=== PATIENT | female | born 1980 | race Caucasian/White ===

== ENCOUNTER 2017-04-11 12:15 | Emergency (ER) | payer BC ==
[2017-04-11 12:33] VITALS: PULSE 75; TEMP 98.6; BMI 47.4
[2017-04-11] MEDS ORDERED: KETOROLAC TROMETHAMINE 30 MG/1 ML VIAL IVPUSH ONE (13:08)
[2017-04-11] MEDS ORDERED: HYDROmorphone HCL CARPU-JECT 1 MG/1 ML DISP.SYRIN IVPUSH ONE (13:08)
[2017-04-11 13:39] LABS: PH,URINE 5.5 (4.5-8); URINE APPEARANCE Clear; URINE BILIRUBIN Negative (NEGATIVE); URINE BLOOD Negative (NEGATIVE); URINE GLUCOSE (UA) Negative (NEGATIVE); URINE KETONE Trace (NEGATIVE); URINE LEUK ESTERASE Negative (NEGATIVE); URINE NITRITE Negative (NEGATIVE); URINE PROTEIN Negative (NEGATIVE); URINE UROBILINOGEN 0.2 (0.2-1.0)
[2017-04-11 13:40] LABS: URINE COLOR YELLOW
[2017-04-11] MEDS ORDERED: KETOROLAC TROMETHAMINE 30 MG/1 ML VIAL ONE (13:40)
[2017-04-11] MEDS ORDERED: HYDROmorphone HCL CARPU-JECT 1 MG/1 ML DISP.SYRIN ONE (13:40)
[2017-04-11 13:47] VITALS: BP 105/65
[2017-04-11 13:53] LABS: BASOPHIL 0.9 % (0-2.0); EOSINOPHIL 0.4 % (0-4.5); MCH 24.2 pg (25.7-33.7); MCHC 32.4 g/dl (32.0-36.0); MEAN CELL VOLUME 74.7 fl (80-96); MEAN PLT VOLUME 7.9 fl (7.5-11.1); NEUTROPHILS 67.1 % (42.8-82.8); PLATELET COUNT 356 K/MM3 (134-434); RDW 15.9 % (11.6-15.6); WHITE BLOOD COUNT 11.6 K/mm3 (4.0-10.8)
[2017-04-11 13:59] LABS: ALBUMIN 4.1 g/dl (3.5-5.0); ALK PHOS 80 U/L (32-92); ANION GAP 6 (8-16); BILIRUBIN,TOTAL 0.5 mg/dl (0.2-1.0); CALCIUM 9.3 mg/dl (8.4-10.2); CO2 24 mmol/L (22-28); CREATININE 0.7 mg/dl (0.6-1.3); GLUCOSE,RANDOM 98 mg/dl (74-106); SGOT/AST 19 U/L (10-42); SGPT/ALT 14 U/L (10-40); TOT PROT 7.5 g/dl (6.4-8.3)
--- NOTE | 2017-04-11 15:03 | PDOC ---
History of Present Illness - General Chief Complaint: Pain Stated Complaint: RIGHT HIP PAIN Time Seen by Provider: 04/11/17 12:38 - History of Present Illness Initial Comments: 04/11/17 15:00 Chief complaint right lower quadrant pain/hip pain History of present illness: This is a 36-year-old woman with past medical history significant for rheumatoid arthritis who presents to the ED with 1 day history of severe right hip and lower abdominal discomfort. Patient states that the pain is not consistent with flairs from her rheumatoid arthritis. She takes Amaryl injections for these. She denies any acute trauma no fever no nausea no vomiting no diarrhea. Pain is moderate to severe 8 out of 10 sharp throbbing. She is unable to ambulate secondary to the pain. Past History - Travel Traveled outside of the country in the last 30 days: No Close contact w/someone who was outside of country & ill: No - Past Medical History Allergies/Adverse Reactions: Allergies Allergy/AdvReac Type Severity Reaction Status Date / Time Penicillins Allergy Severe Difficulty Verified 04/11/17 12:19 Breathing iodine Allergy Intermediate Rash Verified 04/11/17 12:19 amoxicillin Allergy Verified 04/11/17 12:19 morphine AdvReac Intermediate Verified 04/11/17 12:19 contrast Allergy Uncoded 04/11/17 12:19 Home Medications: Ambulatory Orders Etanercept [Enbrel] 50 mg SQ WEEKLY 12/25/15 Sulfasalazine 500 mg PO BID 12/25/15 Albuterol Sulfate Inhaler - [Ventolin Hfa Inhaler -] 1 - 2 inh PO QID PRN Tramadol HCl 50 mg PO TID #12 tablet MDD 200 04/11/17 Anemia: No Asthma: Yes Cancer: No Cardiac Disorders: No CVA: No COPD: No CHF: No Dementia: No Diabetes: No GI Disorders: No Disorders: No HTN: No Hypercholesterolemia: No Liver Disease: No Seizures: No Thyroid Disease: No Other medical history: rHEUMATOID ARTHRITIS - Surgical History Abdominal Surgery: Yes (INGUINAL HERNIA REPAIR BILATERAL) Appendectomy: No Cardiac Surgery: No Cholecystectomy: Yes Lung Surgery: No Neurologic Surgery: No Orthopedic Surgery: No - Immunization History Immunization Up to Date: Yes - Suicide/Smoking/Psychosocial Hx Smoking Status: No Smoking History: Former smoker Have you smoked in the past 12 months: No Number of Cigarettes Smoked Daily: 0 If you are a former smoker, when did you quit?: 1997 Information on smoking cessation initiated: No Hx Alcohol Use: Yes (OCCASIONAL) Drug/Substance Use Hx: No Substance Use Type: None Hx Substance Use Treatment: No Review of Systems - Review of Systems Able to Perform ROS?: Yes Comments:: 04/11/17 15:01 ROS: A complete review of 10 out of 10 review of systems is taken and is negative apart from what is previously mentioned below and in the HPI. *Physical Exam - Vital Signs Last Vital Signs Temp Pulse Resp BP Pulse Ox 98.6 F 75 16 105/65 98 04/11/17 12:16 04/11/17 12:16 04/11/17 12:16 04/11/17 13:46 04/11/17 12:16 - Physical Exam Comments: 04/11/17 15:02 Vitals: Triage Vital signs reviewed General Appearance: no acute distress, well nourished well developed, Head: Atraumatic, Neck: Supple;No Nucal rigidity Chest Wall: Nontender Cardiac: Regular rate and rhythym, no murmurs, no rubs, no gallops, Lungs: Clear to auscultation bilateral, good air movement bilaterally, Abdomen: Soft, non distended, normal bowel sounds, right lower quadrant tenderness to palpation. Extremities: Full range of motion to all extremities, no cyanosis, clubbing, or edema, tenderness to palpation over the right hip pain with range of motion to the right hip. Skin: Warm and dry, no rashes or lesions, no rash, no petechiae ED Treatment Course - LABORATORY CBC & Chemistry Diagram: 04/11/17 13:37 04/11/17 13:37 - ADDITIONAL ORDERS Additional order review: Laboratory Results 04/11/17 04/11/17 13:37 13:37 Sodium 136 Potassium 3.9 Chloride 106 Carbon Dioxide 24 Anion Gap 6 L BUN 16 Creatinine 0.7 Creat Clearance w eGFR > 60 Random Glucose 98 Calcium 9.3 Total Bilirubin 0.5 D AST 19 ALT 14 D Alkaline Phosphatase 80 Total Protein 7.5 Albumin 4.1 Lipase 30 Urine Color Yellow Urine Appearance Clear Urine pH 5.5 Ur Specific [place] 1.020 Urine Protein Negative Urine Glucose (UA) Negative Urine Ketones Trace Urine Blood Negative Urine Nitrite Negative Urine Bilirubin Negative Urine Urobilinogen 0.2 Ur Leukocyte Esterase Negative 04/11/17 13:37 RBC 4.99 MCV 74.7 L MCHC 32.4 RDW 15.9 H MPV 7.9 D Neutrophils % 67.1 Lymphocytes % 24.4 Monocytes % 7.2 Eosinophils % 0.4 D Basophils % 0.9 - RADIOLOGY Radiology Studies Ordered: Category Date Time Status ABDOMEN & PELVIS CT WITH CONTR [CT] Stat CT Scan 04/11/17 13:09 Taken Radiograph Interpretation: 04/11/17 17:27 CT ABDOMEN & PELVIS CT WITH CONTR Show Printer-Friendly Version with Image (1 of 1) Show Printer-Friendly Version without images Patient Name: Hillary Oquendo : 1980 ID: [id number] Study Date: 11-Apr-2017 14:31 [place] [facility] Name: HILL[facility] OQUENDO DEPARTMENT OF RADIOLOGY Phys: Pavan Sellers MD : 1980 Age: 36 Sex: F [facility] Acct: [id number] Loc: [address] Exam Date: 04/11/17 Status: [place] [address] Unit Number: [id number] EXAM#: TYPE/EXAM: RESULT: [id number] CT/ABDOMEN PELVIS CT WITH CONTR HISTORY PROVIDED: Right lower quadrant pain. Sequential axial images were obtained from the domes of the diaphragms through the symphysis pubis following the administration of intravenous contrast material. The lung bases are clear. The liver is normal in size. It is hypodense in texture consistent with diffuse fatty infiltration. No mass lesions are identified within the liver. The spleen is slightly enlarged measuring 12.2 cm in craniocaudad dimension. The pancreas, adrenal glands and kidneys demonstrate no significant abnormalities. The gallbladder has been removed. There is no evidence of intra-abdominal or retroperitoneal lymphadenopathy or fluid collections. There is no evidence of pneumoperitoneum, bowel obstruction or intra-abdominal abscess. The appendix is not identified, however, there are no CT findings for acute appendicitis. Examination of the pelvis demonstrates no evidence of pelvic masses, fluid collections or lymphadenopathy. There is no evidence of acute bony pathology. IMPRESSION: 1. Diffuse fatty infiltration of the liver and mild hepatomegaly. 2. No evidence of appendicitis or acute pathology within the abdomen or pelvis. Please see above discussion. Reported By: Sudheer Hutchins MD 04/11/171523 [employer] Technologist: Per Rain Transcribed Date/Time: 04/11/171523 Information Technology Program Manager: Sudheer Hutchins Printed Date/Time: [ rep prt dt last] [ rep prt tm - Medications Given in the ED: ED Medications Discontinued Medications Generic Name Dose Route Start Last Admin Trade Name Freq PRN Reason Stop Dose Admin Hydromorphone HCl 1 mg 04/11/17 13:08 04/11/17 13:56 Dilaudid Injection - IVPUSH 04/11/17 13:09 1 mg ONCE ONE Administration Ketorolac Tromethamine 30 mg 04/11/17 13:08 04/11/17 13:45 Toradol Injection - IVPUSH 04/11/17 13:09 30 mg ONCE ONE Administration Medical Decision Making - Medical Decision Making 04/11/17 15:40 Right lower quadrant pain and right hip pain may be radicular in nature patient with difficulty walking. We'll CT abdomen and pelvis to rule out atypical appendicitis versus bony pathology pain meds and reassess Reevaluation 3:35 PM Pain somewhat improved CT negative for acute pathology. We'll discharge with crutches pain medication and orthopedic follow-up most likely diagnosis at this time given normal CAT scan is hip bursitis Findings, the need for follow-up and strict return instructions discussed with patient. 04/11/17 17:27 *DC/Admit/Observation/Transfer Diagnosis at time of Disposition: Hip pain, acute Qualifiers: Laterality: right Qualified Code(s): M25.551 - Pain in right hip - Discharge Dispostion Disposition: HOME Condition at time of disposition: Good Admit: No - Prescriptions Prescriptions: Tramadol HCl 50 mg PO TID #12 tablet MDD 200 - Referrals Referrals: Arnaldo Gonzalez MD [Staff Physician] - - Patient Instructions Printed Discharge Instructions: Help for Hip Pain Additional Instructions: Ice affected hip 20 minutes on 20 minutes off. Crutches at all times while ambulating for the next several days. Follow-up with Dr. Gonzalez orthopedics this week. Tramadol as prescribed for pain. Return to ED for any severe worsening symptoms or for any concerns. - Post Discharge Activity Forms/Work/School Notes: Back to Work
[2017-04-11 15:32] LABS: ANISOCYTOSIS 1+; HYPOCHROMIA 1+; MICROCYTOSIS 1+
[2017-04-11 15:33] LABS: OVALOCYTE 1+; TEAR DROP CELLS 1+
== END 2017-04-11 15:57 | disposition home or self-care (01) ==
LOC: FER 12:15
PROC: 3E033NZ Introduction of Analgesics, Hypnotics, Sedatives into Peripheral Vein, Percutaneous Approach (ICD-10-PCS; principal; 2017-04-11)
PROC: 3E0333Z Introduction of Anti-inflammatory into Peripheral Vein, Percutaneous Approach (ICD-10-PCS; 2017-04-11)
DX: M25.551 Pain in right hip (principal); M06.9 Rheumatoid arthritis, unspecified; Z87.891 Personal history of nicotine dependence
CPT/HCPCS: 36415; 74177-TC; 80053; 81003; 83690; 85025; 99282-25

== ENCOUNTER 2017-05-29 04:46 | Emergency (ER) | payer BC ==
[2017-05-29 05:11] VITALS: TEMP 98.8; BMI 39.9
--- NOTE | 2017-05-29 05:40 | PDOC ---
History of Present Illness - General History Source: Patient Exam Limitations: No Limitations - History of Present Illness Initial Comments: 05/29/17 06:14 The patient is a 36 year old female with a significant PMH of asthma and rheumatoid arthritis who presents to the emergency department with right knee pain s/p slip earlier today. The patient reports slipping on ice on the steps in front of her house and impacting her knees. She reports going into her house and feeling like her right knee locked in place about 30 minutes after. She reports being unable to extend her right knee secondary to pain. The patient denies any LOC. The patient denies taking any medication for her pain. The patient denies chest pain, shortness of breath, headache and dizziness. Denies fever, chills, nausea, vomit, diarrhea and constipation. Denies dysuria, frequency, urgency and hematuria. Allergies: Penicillins, Amoxicillin, Iodine, Morphine, Oral contrast. Past surgical history: None reported. Social history: No reported cigarette, alcohol, or drug use. PCP: None reported. <Ben Landeros - Last Filed: 05/29/17 06:15> <Aicha Colunga - Last Filed: 05/29/17 20:03> - General Chief Complaint: Pain, Acute Stated Complaint: R LEG PAIN Time Seen by Provider: 05/29/17 05:24 Past History <Ben Landeros - Last Filed: 05/29/17 06:15> - Past Medical History Anemia: No Asthma: Yes Cancer: No Cardiac Disorders: No CVA: No COPD: No CHF: No Dementia: No Diabetes: No GI Disorders: No Disorders: No HTN: No Hypercholesterolemia: No Liver Disease: No Seizures: No Thyroid Disease: No - Surgical History Abdominal Surgery: Yes (INGUINAL HERNIA REPAIR BILATERAL) Appendectomy: No Cardiac Surgery: No Cholecystectomy: Yes Lung Surgery: No Neurologic Surgery: No Orthopedic Surgery: No - Immunization History Immunization Up to Date: Yes - Suicide/Smoking/Psychosocial Hx Smoking Status: No Smoking History: Never smoked Have you smoked in the past 12 months: No Number of Cigarettes Smoked Daily: 0 If you are a former smoker, when did you quit?: 1997 Information on smoking cessation initiated: No Hx Alcohol Use: No Drug/Substance Use Hx: No Substance Use Type: None Hx Substance Use Treatment: No <Aicha Colunga - Last Filed: 05/29/17 20:03> - Past Medical History Allergies/Adverse Reactions: Allergies Allergy/AdvReac Type Severity Reaction Status Date / Time Penicillins Allergy Severe Difficulty Verified 04/11/17 12:19 Breathing iodine Allergy Intermediate Rash Verified 04/11/17 12:19 amoxicillin Allergy Verified 04/11/17 12:19 morphine AdvReac Intermediate Verified 04/11/17 12:19 contrast Allergy Uncoded 04/11/17 12:19 Home Medications: Ambulatory Orders Etanercept [Enbrel] 50 mg SQ WEEKLY 12/25/15 Sulfasalazine 500 mg PO BID 12/25/15 Albuterol Sulfate Inhaler - [Ventolin Hfa Inhaler -] 1 - 2 inh PO QID PRN Ibuprofen 600 mg PO TID PRN #90 tablet MDD 3 05/29/17 Ibuprofen [Motrin -] 600 mg PO TID PRN #90 tablet 05/29/17 Oxycodone HCl/Acetaminophen [Percocet 5-325 mg Tablet] 1 tab PO Q4H #15 tablet MDD 6 05/29/17 Review of Systems - Review of Systems Able to Perform ROS?: Yes Comments:: 05/29/17 06:15 GENERAL/CONSTITUTIONAL: No fever or chills. No weakness. HEAD, EYES, EARS, NOSE AND THROAT: No change in vision. No ear pain or discharge. No sore throat. CARDIOVASCULAR: No chest pain or shortness of breath. RESPIRATORY: No cough, wheezing, or hemoptysis. GASTROINTESTINAL: No nausea, vomiting, diarrhea or constipation. GENITOURINARY: No dysuria, frequency, or change in urination. MUSCULOSKELETAL: (+) Right knee pain and swelling. No neck or back pain. SKIN: No rash NEUROLOGIC: No headache, vertigo, loss of consciousness, or change in strength/ sensation. ENDOCRINE: No increased thirst. No abnormal weight change. HEMATOLOGIC/LYMPHATIC: No anemia, easy bleeding, or history of blood clots. ALLERGIC/IMMUNOLOGIC: No hives or skin allergy. <Ben Landeros - Last Filed: 05/29/17 06:15> *Physical Exam - Vital Signs Last Vital Signs Temp Pulse Resp BP Pulse Ox 98.8 F 82 17 102/60 99 05/29/17 05:09 05/29/17 05:09 05/29/17 05:09 05/29/17 05:09 05/29/17 05:09 - Physical Exam Comments: 05/29/17 06:15 GENERAL: Awake, alert, and fully oriented, in no acute distress HEAD: No signs of trauma EYES: PERRLA, EOMI, sclera anicteric, conjunctiva clear ENT: Auricles normal inspection, hearing grossly normal, nares patent, oropharynx clear without exudates. Moist mucosa NECK: Normal ROM, supple, no lymphadenopathy, JVD, or masses LUNGS: Breath sounds equal, clear to auscultation bilaterally. No wheezes, and no crackles HEART: Regular rate and rhythm, normal S1 and S2, no murmurs, rubs or gallops ABDOMEN: Soft, nontender, normoactive bowel sounds. No guarding, no rebound. No masses EXTREMITIES: (+) Superior medial aspect of right knee soft tissue swelling. Normal range of motion. No clubbing or cyanosis. No cords, erythema, or tenderness NEUROLOGICAL: Cranial nerves II through XII grossly intact. Normal speech. SKIN: Warm, Dry, normal turgor, no rashes or lesions noted. <Ben Landeros - Last Filed: 05/29/17 06:15> - Vital Signs Last Vital Signs Temp Pulse Resp BP Pulse Ox 98.8 F 82 17 102/60 99 05/29/17 05:09 05/29/17 05:09 05/29/17 05:09 05/29/17 05:09 05/29/17 05:09 <Aicha Colunga - Last Filed: 05/29/17 20:03> Medical Decision Making - Medical Decision Making 05/29/17 06:33 Pt comes with right knee pain that began after she fell on the ice in front of her bldg. Pt states that she was able to ambulate back to her home. She got in bed and flexed her knee for comfort. Upon waking up, she noted that she was unable to extend the knee and she is in pain. Pt is upset and wants to examine the knee. 05/29/17 06:35 Pt will be given pain meds and benadryl for its ability to relax her muscles. Pt will be sent for a CT of the knee to examine the underlying issue. 05/29/17 20:02 Pt signed out to the day team. They will evaluate the CT scan results and once pt's muscles are relaxed, they can extend her leg and place it in a knee immobilizer and discuss the case with ortho as needed. <Aicha Colunga - Last Filed: 05/29/17 20:03> *DC/Admit/Observation/Transfer - Attestations Scribe Attestion: 05/29/17 06:15 Documentation prepared by Ben Landeros, acting as neuropsychology medical consultant for Aicha Colunga MD. <Ben Landeros - Last Filed: 05/29/17 06:15> <Aicha Colunga - Last Filed: 05/29/17 20:03> Diagnosis at time of Disposition: Knee pain, right - Discharge Dispostion Disposition: HOME Condition at time of disposition: Good - Prescriptions Prescriptions: Ibuprofen 600 mg PO TID PRN #90 tablet MDD 3 PRN Reason: Pain Ibuprofen [Motrin -] 600 mg PO TID PRN #90 tablet PRN Reason: Pain Oxycodone HCl/Acetaminophen [Percocet 5-325 mg Tablet] 1 tab PO Q4H #15 tablet MDD 6 - Referrals Referrals: Chun St MD [Staff Physician] - - Patient Instructions Printed Discharge Instructions: Knee Sprain Additional Instructions: He can take ibuprofen 6 mg every 6-8 hours as needed for pain. Take with food wear knee immobilizer until follow-up with the orthopedist. Use crutches for comfort ice and elevate to reduce swelling and pain he should follow-up with Dr. St see referral information for phone number and call to schedule within 1-2 weeks return for any problems or concerns - Post Discharge Activity Forms/Work/School Notes: Back to Work
[2017-05-29] MEDS ORDERED: diphenhydrAMINE HCL 25 MG CAPSULE (FP) PO ONE ×2 (06:05→06:12)
[2017-05-29 07:34] VITALS: BP 114/56; PULSE 78
[2017-05-29] MEDS ORDERED: KETOROLAC TROMETHAMINE 30 MG/1 ML VIAL IM ONE (07:54)
[2017-05-29] MEDS ORDERED: diazePAM 5 MG TABLET PO ONE (07:55)
[2017-05-29] MEDS ORDERED: diazePAM 5 MG TABLET ONE (08:03)
[2017-05-29] MEDS ORDERED: KETOROLAC TROMETHAMINE 30 MG/1 ML VIAL ONE (08:03)
--- NOTE | 2017-05-29 08:24 | PDOC ---
"*Physical Exam - Vital Signs Last Vital Signs Temp Pulse Resp BP Pulse Ox 98.8 F 78 18 114/56 99 05/29/17 05:09 05/29/17 07:33 05/29/17 07:33 05/29/17 07:33 05/29/17 07:33 - Physical Exam General Appearance: Yes: Nourished Extremity: positive: Tender, Other (Left knee tender to palpation over the quadriceps tendon patient states she is unable to extend due to pain no laxity no defect noted over the patellar quadriceps tendon ankle and hip are nontender with full range of motion distally neurovascularly intact). negative: Normal Range of Motion Integumentary: positive: Normal Color, Dry, Warm ED Treatment Course - Medications Given in the ED: ED Medications Discontinued Medications Generic Name Dose Route Start Last Admin Trade Name Alanq PRN Reason Stop Dose Admin Diazepam 5 mg 05/29/17 07:55 05/29/17 08:14 Valium - PO 05/29/17 07:56 5 mg ONCE ONE Administration Diphenhydramine HCl 50 mg 05/29/17 06:05 05/29/17 06:20 Benadryl - PO 05/29/17 06:06 50 mg ONCE ONE Administration Ketorolac Tromethamine 30 mg 05/29/17 07:54 05/29/17 08:14 Toradol Injection - IM 05/29/17 07:55 30 mg ONCE ONE Administration Oxycodone/Acetaminophen 2 combo 05/29/17 06:05 05/29/17 06:20 Percocet 5/325 - PO 05/29/17 06:06 2 combo ONCE ONE Administration Medical Decision Making - Medical Decision Making 05/29/17 08:21 36-year-old female h/o RA status post slip and fall signed out to me by Dr. Esteban complaining of right knee pain she was pending CT of the right knee. pt had she had a fall yesterday went to bed, and when to woke up was unable to straighten her knee. CT read shows mild effusion the ACL and posterior cruciate ligaments are intact no bony fractures. Discussed with the patient states she still can't extend her knee patiently given Toradol and Valium will be discharged home with knee immobilizer and orthopedic follow-up given the number for Dr. St 05/29/17 09:36 pt refusing to allow me to apply knee immobilizer and attempt to straighten her knee. given immobilizer to take home. pt requesting iv narcotics for placement of knee immoblizier. after 2 percocet, valium and im dilaudid. also requesting different narcotic prescription. follow up dr. st. dc with crutches and immobilizer to apply at home.given work note for few days off of work per her request. 05/29/17 09:52 [facility] report obtained, no prior narcotic prescriptions. given rx for percocet one every 6 hours as needed for pain. #15 This report was requested by: Debby Maher | [facility] Reference #: [id number] 05/29/17 10:00 05/29/17 10:11 CV *DC/Admit/Observation/Transfer Diagnosis at time of Disposition: Knee pain, right - Discharge Dispostion Disposition: HOME Condition at time of disposition: Good Admit: No - Prescriptions Prescriptions: Ibuprofen 600 mg PO TID PRN #90 tablet MDD 3 PRN Reason: Pain Ibuprofen [Motrin -] 600 mg PO TID PRN #90 tablet PRN Reason: Pain Oxycodone HCl/Acetaminophen [Percocet 5-325 mg Tablet] 1 tab PO Q4H #15 tablet MDD 6 - Referrals Referrals: Chun St MD [Staff Physician] - - Patient Instructions Printed Discharge Instructions: Knee Sprain Additional Instructions: He can take ibuprofen 6 mg every 6-8 hours as needed for pain. Take with food wear knee immobilizer until follow-up with the orthopedist. Use crutches for comfort ice and elevate to reduce swelling and pain he should follow-up with Dr. St see referral information for phone number and call to schedule within 1-2 weeks return for any problems or concerns - Post Discharge Activity Forms/Work/School Notes: Back to Work"
[2017-05-29] MEDS ORDERED: HYDROmorphone HCL CARPU-JECT 2 MG/1 ML DISP.SYRIN IM ONE (09:14)
[2017-05-29] MEDS ORDERED: HYDROmorphone HCL CARPU-JECT 2 MG/1 ML DISP.SYRIN ONE (09:17)
== END 2017-05-29 10:08 | disposition home or self-care (01) ==
LOC: JER 04:46
PROC: 3E0333Z Introduction of Anti-inflammatory into Peripheral Vein, Percutaneous Approach (ICD-10-PCS; principal; 2017-05-29)
PROC: 3E033NZ Introduction of Analgesics, Hypnotics, Sedatives into Peripheral Vein, Percutaneous Approach (ICD-10-PCS; 2017-05-29)
DX: M25.561 Pain in right knee (principal); W00.1XXA Fall from stairs and steps due to ice and snow, initial encounter; Y93.89 Activity, other specified; Y92.009 Unspecified place in unspecified non-institutional (private) residence as the place of occurrence of the external cause
CPT/HCPCS: 73700-TC-RT; 99282-25

== ENCOUNTER 2017-09-13 12:37 | Emergency (ER) | payer BC ==
[2017-09-13 12:58] VITALS: BP 104/53; PULSE 74; TEMP 98.1; BMI 39.9
[2017-09-13] MEDS ORDERED: METOCLOPRAMIDE HCL 10 MG TABLET (FP) PO ONE ×2 (13:16→13:18)
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
== END 2017-09-13 15:40 | disposition home or self-care (01) ==
LOC: FER 12:37
DX: M54.5 Low back pain (principal); S06.0X0A Concussion without loss of consciousness, initial encounter; V43.52XA Car driver injured in collision with other type car in traffic accident, initial encounter; Y93.89 Activity, other specified; Y92.410 Unspecified street and highway as the place of occurrence of the external cause
CPT/HCPCS: 70450-TC; 72100-TC-FY; 84703; 99284-25

== ENCOUNTER 2018-01-07 18:20 | Emergency (ER) | payer BC ==
[2018-01-07 18:27] VITALS: BP 133/97; PULSE 79; TEMP 98.6; BMI 35.7
--- NOTE | 2018-01-07 18:33 | PDOC ---
History of Present Illness - General Chief Complaint: Pain Stated Complaint: LOW ABD, BACK PAIN Time Seen by Provider: 01/07/18 18:27 - History of Present Illness Initial Comments: 01/07/18 18:28 37 year old with history of RA and asthma who presents with 2 days of progressive R sided abdominal pain radiating to the R back rated 9/10. The patient had one episode of vomiting that was mainly fluid this AM, but denies diarrhea, constipation or fever. She noted that she is unable to find a comfortable place to sit due to the pain and had difficulty sleeping last night. She denies headache, changes in vision, hearing or chest pain. PMHX: as in HPI PSHX: R ovary cyst removal Meds: enbrel Allergies: penicillin, amoxicillin Tob; none Etoh: none Rec drugs: none Past History - Past Medical History Allergies/Adverse Reactions: Allergies Allergy/AdvReac Type Severity Reaction Status Date / Time Penicillins Allergy Severe Difficulty Verified 01/07/18 18:22 Breathing iodine Allergy Intermediate Rash Verified 01/07/18 18:22 amoxicillin Allergy Verified 01/07/18 18:22 morphine AdvReac Intermediate Verified 01/07/18 18:22 contrast Allergy Mild Uncoded 01/07/18 18:22 oral contrast Allergy Uncoded 01/07/18 18:28 Home Medications: Ambulatory Orders Etanercept [Enbrel] 50 mg SQ WEEKLY 12/25/15 Albuterol Sulfate Inhaler - [Ventolin HFA Inhaler -] 1 - 2 inh PO PRN PRN Nitrofurantoin Monohyd/M-Cryst [Macrobid -] 100 mg PO BID #14 capsule 01/07/18 Sulfasalazine 500 mg PO BID 01/07/18 Anemia: No Asthma: Yes Cancer: Yes ([facility]AR[facility]) Cardiac Disorders: No CVA: No COPD: No CHF: No Dementia: No Diabetes: No GI Disorders: No Disorders: No HTN: No Hypercholesterolemia: No Liver Disease: No Seizures: No Thyroid Disease: No - Surgical History Abdominal Surgery: Yes (INGUINAL HERNIA REPAIR BILATERAL) Appendectomy: No Cardiac Surgery: No Cholecystectomy: Yes Lung Surgery: No Neurologic Surgery: No Orthopedic Surgery: No - Immunization History Immunization Up to Date: Yes - Suicide/Smoking/Psychosocial Hx Smoking Status: No Smoking History: Former smoker Have you smoked in the past 12 months: No Number of Cigarettes Smoked Daily: 0 If you are a former smoker, when did you quit?: 1997 Information on smoking cessation initiated: No Hx Alcohol Use: No Drug/Substance Use Hx: No Substance Use Type: None Hx Substance Use Treatment: No Review of Systems - Review of Systems Able to Perform ROS?: Yes Is the patient limited [place] proficient: No Constitutional: Yes: Loss of Appetite (2/2 pain). No: Chills, Diaphoresis, Fever HEENTM: No: Blurred Vision, Tinnitus Respiratory: No: Cough, Shortness of Breath Cardiac (ROS): No: Chest Pain ABD/GI: Yes: Nausea, Poor Appetite, Vomiting. No: Constipated, Diarrhea : Yes: Flank Pain. No: Burning, Dysuria, Discharge, Pain, Urgency Musculoskeletal: Yes: Back Pain. No: Muscle Pain Neurological: No: Headache, Numbness, Paresthesia, Tingling *Physical Exam - Vital Signs Last Vital Signs Temp Pulse Resp BP Pulse Ox 98.6 F 79 18 133/97 97 01/07/18 18:20 01/07/18 18:20 01/07/18 18:20 01/07/18 18:20 01/07/18 18:20 - Physical Exam Comments: 01/07/18 18:44 GENERAL: Awake, alert, and fully oriented, in no acute distress HEAD: No signs of trauma, normocephalic, atraumatic EYES: EOMI, sclera anicteric, conjunctiva clear ENT: oropharynx clear without exudates. dry mucosa membranes LUNGS: No distress, speaks full sentences, clear to auscultation bilaterally HEART: Regular rate and rhythm, normal S1 and S2, no murmurs, rubs or gallops, peripheral pulses normal and equal bilaterally. ABDOMEN: Soft, + RUQ and RLQ tender to palpation, normoactive bowel sounds. No guarding, no rebound. No masses BACK: + R CVA tenderness EXTREMITIES : Normal inspection, Normal range of motion, no edema. No clubbing or cyanosis. NEUROLOGICAL: Normal speech, normal gait, no focal sensorimotor deficits SKIN: Warm, Dry, normal turgor, no rashes or lesions noted ED Treatment Course - LABORATORY CBC & Chemistry Diagram: 01/07/18 18:50 01/07/18 18:59 Medical Decision Making - Medical Decision Making 01/07/18 18:49 37 year old with history of RA and asthma who presents with 2 days of progressive R sided abdominal pain radiating to the R back rated 9/10. Patient' s symptoms and history are concerning for nephrolithiasis vs appendicitis vs pyelonephritis vs UTI. Will evaluate for these etiologies and manage pain. - spiral renal CT - abd US - CBC, CMP, UA, Upreg, Urine culture - lipase 01/07/18 18:57 01/08/18 22:48 *DC/Admit/Observation/Transfer Diagnosis at time of Disposition: Urinary tract infection, Disc degeneration - Discharge Dispostion Disposition: HOME Condition at time of disposition: Stable - Prescriptions Prescriptions: Nitrofurantoin Monohyd/M-Cryst [Macrobid -] 100 mg PO BID #14 capsule - Referrals - Patient Instructions Printed Discharge Instructions: Urinary Tract Infection, Degenerative Disc Disease - Post Discharge Activity Forms/Work/School Notes: Back to Work
[2018-01-07] MEDS ORDERED: ONDANSETRON 4 MG TABLET PO ONE (18:37)
[2018-01-07] MEDS ORDERED: SODIUM CHLORIDE 1,000 ML IV SCH (18:45)
[2018-01-07] MEDS ORDERED: ONDANSETRON 4 MG/2 ML VIAL ONE (18:53)
[2018-01-07] MEDS ORDERED: ONDANSETRON 4 MG/2 ML VIAL IVPUSH ONE (19:00)
--- NOTE | 2018-01-07 19:03 | PDOC ---
Attending Attestation - HPI HPI: 37 yo F with history of gall stones s/p cholecystectomy, who presents to the ED complaining of 1 day of right flank, right upper quadrant, and right lower quadrant pain w 1 episode of vomiting. Denies fever or chills. Denies hematuria or dysuria. - Physicial Exam PE: 01/07/18 19:08 GENERAL: Awake, alert, and fully oriented, in no acute distress. Obese. HEAD: No signs of trauma EYES: PERRLA, EOMI, sclera anicteric, conjunctiva clear ENT: Auricles normal inspection, hearing grossly normal, nares patent, oropharynx clear without exudates. Moist mucosa NECK: Normal ROM, supple, no lymphadenopathy, JVD, or masses LUNGS: Breath sounds equal, clear to auscultation bilaterally. No wheezes, and no crackles HEART: Regular rate and rhythm, normal S1 and S2, no murmurs, rubs or gallops ABDOMEN: +RLQ, RUQ ttp. Soft, normoactive bowel sounds. No guarding, no rebound. No masses BACK: +R CVA ttp. EXTREMITIES: Normal range of motion, no edema. No clubbing or cyanosis. No cords, erythema, or tenderness NEUROLOGICAL: Cranial nerves II through XII grossly intact. Normal speech, normal gait SKIN: Warm, Dry, normal turgor, no rashes or lesions noted. - Medical Decision Making 01/07/18 19:09 Documentation prepared by Chichi Mendoza, acting as medical research scientist for Ben Hammond MD. <Chichi Mendoza - Last Filed: 01/07/18 19:05> - Resident Resident Name: Brenda Redding - ED Attending Attestation I have performed the following: I have examined & evaluated the patient, The case was reviewed & discussed with the resident, I agree w/resident's findings & plan, Exceptions are as noted - Medical Decision Making 01/07/18 19:17 A portion of this note was written by my scribe, under my supervision. Hx s/p cholecystecomy p/w R flank, RUQ, RLQ pain. Differential includes choledocholithiasis, renal colic, pyelonephritis, appendicitis, colitis. I agree with plan with labs, CT abdomen and pelvis, UA, urine test. Pt signed out to Dr. Colunga (night doctor) for further management and disposition. <Ben Hammond - Last Filed: 01/07/18 19:18>
[2018-01-07 19:11] LABS: BASO % 0.8 % (0-2.0); EOS % 1.5 % (0-4.5); HEMATOCRIT 40.6 % (32.4-45.2); HEMOGLOBIN 13.4 GM/dl (10.7-15.3); MCH 26.6 pg (25.7-33.7); MCHC 32.9 g/dl (32.0-36.0); MEAN CELL VOLUME 80.8 fl (80-96); MEAN PLT VOLUME 7.7 fl (7.5-11.1); MONO % 7.5 % (3.8-10.2); NEUT % 48.2 % (42.8-82.8); PLATELET COUNT 303 K/MM3 (134-434); RBC 5.02 M/mm3 (3.60-5.2); RDW 15.2 % (11.6-15.6); WHITE BLOOD COUNT 6.8 K/mm3 (4.0-10.8)
[2018-01-07 19:18] LABS: PH,URINE 5.5 (4.5-8); URINE APPEARANCE Clear; URINE BILIRUBIN 1+ (NEGATIVE); URINE COLOR Yellow; URINE GLUCOSE (UA) Negative (NEGATIVE); URINE KETONE Trace (NEGATIVE); URINE LEUK ESTERASE Negative (NEGATIVE); URINE NITRITE Negative (NEGATIVE); URINE PROTEIN Negative (NEGATIVE); URINE UROBILINOGEN 0.2 (0.2-1.0)
[2018-01-07 19:25] LABS: ALBUMIN 3.9 g/dl (3.5-5.0); ALK PHOS 69 U/L (32-92); ANION GAP 4 (8-16); BILIRUBIN,TOTAL 0.3 mg/dl (0.2-1.0); BLOOD UREA NITROGEN 16 mg/dl (7-18); CALCIUM 8.8 mg/dl (8.4-10.2); CHLORIDE 108 mmol/L (98-107); CO2 26 mmol/L (22-28); CREATININE 0.8 mg/dl (0.6-1.3); GLUCOSE,RANDOM 94 mg/dl (74-106); POTASSIUM 3.9 mmol/L (3.5-5.1); SGOT/AST 22 U/L (10-42); SGPT/ALT 14 U/L (10-40); SODIUM 138 mmol/L (136-145); TOT PROT 7.1 g/dl (6.4-8.3)
[2018-01-07 19:37] LABS: AMORP URATES FEW /hpf (NONE SEEN); EPI CELLS FEW /HPF; URINE BACTERIA FEW /hpf (NEGATIVE)
[2018-01-07 20:03] LABS: LIPASE 238 U/L (73-393)
--- NOTE | 2018-01-07 20:21 | PDOC ---
*Physical Exam - Vital Signs Last Vital Signs Temp Pulse Resp BP Pulse Ox 98.6 F 79 18 133/97 97 01/07/18 18:20 01/07/18 18:20 01/07/18 18:20 01/07/18 18:20 01/07/18 18:20 ED Treatment Course - LABORATORY CBC & Chemistry Diagram: 01/07/18 18:50 01/07/18 18:59 - ADDITIONAL ORDERS Additional order review: Laboratory Results 01/07/18 01/07/18 01/07/18 18:59 18:59 18:50 Sodium 138 Potassium 3.9 Chloride 108 H Carbon Dioxide 26 Anion Gap 4 L BUN 16 Creatinine 0.8 Creat Clearance w eGFR > 60 Random Glucose 94 Calcium 8.8 Total Bilirubin 0.3 AST 22 ALT 14 Alkaline Phosphatase 69 Total Protein 7.1 Albumin 3.9 Lipase 238 Urine Color Yellow Urine Appearance Clear Urine pH 5.5 Ur Specific [place] 1.025 Urine Protein Negative Urine Glucose (UA) Negative Urine Ketones Trace Urine Blood 1+ H Urine Nitrite Negative Urine Bilirubin 1+ H Urine Urobilinogen 0.2 Ur Leukocyte Esterase Negative Urine RBC 5-10 Urine WBC 2-5 Ur Epithelial Cells Few Amorphous Urates Few Urine Bacteria Few Urine HCG, Qual Negative 01/07/18 18:50 RBC 5.02 MCV 80.8 MCHC 32.9 RDW 15.2 MPV 7.7 Neutrophils % 48.2 Lymphocytes % 42.0 H Monocytes % 7.5 Eosinophils % 1.5 Basophils % 0.8 - Medications Given in the ED: ED Medications Discontinued Medications Generic Name Dose Route Start Last Admin Trade Name Rosalia PRN Reason Stop Dose Admin Ondansetron HCl 4 mg 01/07/18 18:37 01/07/18 19:02 Zofran - PO 01/07/18 18:38 Not Given ONCE ONE Ondansetron HCl 4 mg 01/07/18 19:00 01/07/18 19:00 Zofran Injection IVPUSH 01/07/18 19:01 4 mg ONCE ONE Administration Oxycodone/Acetaminophen 1 combo 01/07/18 18:38 01/07/18 19:00 Percocet 5/325 - PO 01/07/18 18:39 1 combo ONCE ONE Administration Medical Decision Making - Medical Decision Making 01/07/18 20:19 Patient Name: HILLARY MEREDITH THIS IS A PRELIMINARY REPORT FROM [facility] DATE OF SERVICE: 2018-01-07 19:05:24 IMAGES: 536 EXAM: CT abdomen and pelvis without IV contrast. Clinical indication: Right flank pain. Comparison is made to the prior study dated 02/03/2014. Technique: Axial unenhanced CT images of the abdomen and pelvis were obtained followed by coronal and sagittal reformats Findings: The visualized portions of the lower thorax are within normal limits. There is no free intra-abdominal gas or fluid. There is been a prior cholecystectomy. The liver, adrenals, pancreas, and spleen are unremarkable, given limitations of a nonenhanced CT. There is no hydronephrosis or hydroureter bilaterally. There are no renal calculi bilaterally. The bilateral kidneys are unremarkable, given the limitations of an unenhanced CT. There are no enlarged abdominal or pelvic lymph nodes, by size criteria. The pelvic organs are grossly unremarkable, given limitations of CT for evaluating them. The appendix is normal. The remainder of the bowel is unremarkable. There is a small umbilical hernia containing omental fat. The remainder of the abdominal wall is intact. There is multilevel thoracolumbar degenerative disc disease. The remainder of the visualized bony structures are unremarkable. Impression: Unremarkable CT of the abdomen and pelvis, given the limitations of an unenhanced CT SONO ABDOMEN: Pt has a UTI, a small fat hernia of the abdomen and she has degenerative disc disease 01/07/18 20:20 Labs normal; Pt will be treated with maxcrobid 01/07/18 20:24 THIS IS A PRELIMINARY REPORT FROM [facility] DATE OF SERVICE: 2018-01-07 18:56:43 IMAGES: 60 EXAM: Complete abdominal sonogram. Clinical indication: Right upper quadrant abdominal pain. Comparison is made to the CT dated 01/07/2018. Findings: The tail of the pancreas was not well-visualized due to overlying bowel gas. The remainder of the pancreas is unremarkable, without sonographically detected focal abnormality. The IVC is patent. The abdominal aorta is sonographically within normal limits. There is no evidence of retroperitoneal adenopathy. The gallbladder is absent. The common bile duct measures 0.3 cm in diameter. The liver demonstrates diffuse increased echogenicity consistent with diffuse liver disease, the most common cause of which is fatty infiltration of liver. There are no sonographically detected focal hepatic lesions. There is no intrahepatic biliary duct dilatation. There is normal antegrade portal venous flow. There is no ascites. The right kidney measures 11.0 x 4.2 x 4.17 m in diameter and has an unremarkable sonographic appearance, without sonographically detected focal abnormal liver there is no right-sided hydronephrosis or renal calculi. There is no ascites. The spleen has an unremarkable size, shape and echotexture. The left kidney measures 10.9 x 5.8 x 5.0 cm in diameter and has an unremarkable sonographic appearance, without sonographically detected focal abnormal. There is no left- sided hydronephrosis or renal calculi. Impression: 1. Poor visualization of the tail of the pancreas. 2. Diffuse increased hepatic echogenicity consistent with diffuse liver disease , the most common cause of which is fatty infiltration of liver. 3. Otherwise, unremarkable complete abdominal sonogram. THIS DOCUMENT HAS BEEN ELECTRONICALLY SIGNED I received patient on signout. She will be treated for a UTI. She has degenerative dics and a small fat containing umbilical hernia. She has no renal stones and jimy biliary dict stones. She feels well and she will go home with her . 01/08/18 01:06 *DC/Admit/Observation/Transfer Diagnosis at time of Disposition: Urinary tract infection, Disc degeneration - Discharge Dispostion Disposition: HOME Condition at time of disposition: Stable Decision to Admit order: No - Prescriptions Prescriptions: Nitrofurantoin Monohyd/M-Cryst [Macrobid -] 100 mg PO BID #14 capsule - Referrals - Patient Instructions Printed Discharge Instructions: Urinary Tract Infection, Degenerative Disc Disease - Post Discharge Activity Forms/Work/School Notes: Back to Work
[2018-01-07] MEDS ORDERED: NITROFURANTOIN MACROCRYSTAL 50 MG CAPSULE (FP) ONE (20:26)
[2018-01-07] MEDS ORDERED: NITROFURANTOIN MACROCRYSTAL 50 MG CAPSULE (FP) PO SCH (20:30)
== END 2018-01-07 21:00 | disposition home or self-care (01) ==
LOC: FER 18:20
PROC: 3E033GC Introduction of Other Therapeutic Substance into Peripheral Vein, Percutaneous Approach (ICD-10-PCS; principal; 2018-01-07)
PROC: 3E0337Z Introduction of Electrolytic and Water Balance Substance into Peripheral Vein, Percutaneous Approach (ICD-10-PCS; 2018-01-07)
DX: N39.0 Urinary tract infection, site not specified (principal); M51.35 Other intervertebral disc degeneration, thoracolumbar region; M06.9 Rheumatoid arthritis, unspecified; J45.909 Unspecified asthma, uncomplicated; Z85.43 Personal history of malignant neoplasm of ovary; Z87.891 Personal history of nicotine dependence
CPT/HCPCS: 36415; 74176; 76700-TC; 80053; 81003; 81015; 83690; 84703; 85025; 87086; 99285-25; J7030

== ENCOUNTER 2018-05-19 09:59 | Emergency (ER) | payer OTHER, BC ==
--- NOTE | 2018-05-19 10:20 | PDOC ---
History of Present Illness - General Chief Complaint: Pain Stated Complaint: LEFT CALF PAIN AFTER INJURY AT WORK Time Seen by Provider: 05/19/18 10:03 History Source: Patient Exam Limitations: No Limitations - History of Present Illness Initial Comments: 37 yo F history rheumatoid arthritis presents with L calf pain. 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 She has history of varicose veins, developed a very painful bruise in the area. No weakness, numbness. No open lesions. No history of DVT, easy bleeding. Past History - Past Medical History Allergies/Adverse Reactions: Allergies Allergy/AdvReac Type Severity Reaction Status Date / Time Penicillins Allergy Severe Difficulty Verified 05/19/18 10:22 Breathing iodine Allergy Intermediate Rash Verified 05/19/18 10:22 amoxicillin Allergy Verified 05/19/18 10:22 morphine AdvReac Intermediate Verified 05/19/18 10:22 contrast Allergy Mild Rash Uncoded 05/19/18 10:23 oral contrast Allergy Mild Rash Uncoded 05/19/18 10:23 Home Medications: Ambulatory Orders Etanercept [Enbrel] 50 mg SQ WEEKLY 12/25/15 Albuterol Sulfate Inhaler - [Ventolin HFA Inhaler -] 1 - 2 inh PO PRN PRN Sulfasalazine 500 mg PO TID 01/07/18 Anemia: No Asthma: Yes Cancer: Yes (OVARIAN) Cardiac Disorders: No CVA: No COPD: No CHF: No Dementia: No Diabetes: No GI Disorders: No Disorders: No HTN: No Hypercholesterolemia: No Liver Disease: No Seizures: No Thyroid Disease: No - Surgical History Abdominal Surgery: Yes (INGUINAL HERNIA REPAIR BILATERAL) Appendectomy: No Cardiac Surgery: No Cholecystectomy: Yes Lung Surgery: No Neurologic Surgery: No Orthopedic Surgery: No - Immunization History Immunization Up to Date: Yes - Suicide/Smoking/Psychosocial Hx Smoking Status: No Smoking History: Former smoker Have you smoked in the past 12 months: No Number of Cigarettes Smoked Daily: 0 If you are a former smoker, when did you quit?: 1997 'Breaking Loose' booklet given: 01/07/18 Hx Alcohol Use: No Drug/Substance Use Hx: No Substance Use Type: None Hx Substance Use Treatment: No Review of Systems - Review of Systems Able to Perform ROS?: Yes Comments:: GENERAL/CONSTITUTIONAL: No fever or chills. No weakness. HEAD, EYES, EARS, NOSE AND THROAT: No change in vision. No ear pain or discharge. No sore throat. CARDIOVASCULAR: No chest pain or shortness of breath. RESPIRATORY: No cough, wheezing, or hemoptysis. GASTROINTESTINAL: No nausea, vomiting, diarrhea or constipation. GENITOURINARY: No dysuria, frequency, or change in urination. MUSCULOSKELETAL: +L calf swelling. No neck or back pain. SKIN: No rash NEUROLOGIC: No headache, vertigo, loss of consciousness, or change in strength/ sensation. ENDOCRINE: No increased thirst. No abnormal weight change. HEMATOLOGIC/LYMPHATIC: No anemia, easy bleeding, or history of blood clots. ALLERGIC/IMMUNOLOGIC: No hives or skin allergy. *Physical Exam - Physical Exam Comments: GENERAL: Awake, alert, and fully oriented, in no acute distress HEAD: No signs of trauma EYES: PERRLA, EOMI, sclera anicteric, conjunctiva clear ENT: Auricles normal inspection, hearing grossly normal, nares patent, oropharynx clear without exudates. Moist mucosa NECK: Normal ROM, supple, no lymphadenopathy, JVD, or masses LUNGS: Breath sounds equal, clear to auscultation bilaterally. No wheezes, and no crackles HEART: Regular rate and rhythm, normal S1 and S2, no murmurs, rubs or gallops ABDOMEN: Soft, nontender, normoactive bowel sounds. No guarding, no rebound. No masses EXTREMITIES: L calf with 5 cm hematoma, multiple varicosities. Remainder of extremities with normal range of motion, no edema. No clubbing or cyanosis. No cords, erythema, or tenderness NEUROLOGICAL: Cranial nerves II through XII grossly intact. Normal speech, normal gait SKIN: Warm, Dry, normal turgor, no rashes or lesions noted. Medical Decision Making - Medical Decision Making 05/19/18 10:33 Pt declined pain medication. Will obtain sono. Likely DC home. Will give referral to vascular to address her varicose veins in the future. 05/19/18 11:50 Sono shows intramuscular hematoma, which is consistent with physical findings and mechanism of injury. Stable for DC home. Recommended NSAIDs and cool compresses. *DC/Admit/Observation/Transfer Diagnosis at time of Disposition: Hematoma - Discharge Dispostion Disposition: HOME Condition at time of disposition: Stable Decision to Admit order: No - Referrals Referrals: Regino Vargas MD [Staff Physician] - - Patient Instructions Printed Discharge Instructions: DI for Varicose Veins, DI for Hematoma (Bruise) - Post Discharge Activity
[2018-05-19 10:21] VITALS: BP 129/77; PULSE 82; TEMP 98.5; BMI 35.5
== END 2018-05-19 11:27 | disposition home or self-care (01) ==
LOC: FER 09:59
DX: S80.12XA Contusion of left lower leg, initial encounter (principal); X58.XXXA Exposure to other specified factors, initial encounter; Y93.89 Activity, other specified; Y92.89 Other specified places as the place of occurrence of the external cause; Z87.891 Personal history of nicotine dependence; Z85.43 Personal history of malignant neoplasm of ovary; Z85.89 Personal history of malignant neoplasm of other organs and systems
CPT/HCPCS: 93971-TC; 99282-25

== ENCOUNTER 2018-06-22 12:15 | Emergency (ER) | payer SELFPAY ==
[2018-06-22 12:20] VITALS: BP 127/79; PULSE 91; TEMP 98.5; BMI 36.6
[2018-06-22] MEDS ORDERED: ALBUTEROL SO4 2.5/IPRATROPIUM 0.5 INH SOL 3 ML VIAL.NEB. NEB ONE ×6 (12:40→13:39)
--- NOTE | 2018-06-22 12:43 | PDOC ---
Attending Attestation - Resident Resident Name: Mei Valdovinosian - HPI HPI: 06/24/18 18:00 PT presents to the ED complaining of wheezing and shortness of breath constistent with prior asthma attacks. Improving in the ED with nebs and steroids. Denies fevers or other complaints. Never been intubated for asthma. - Physicial Exam PE: 06/24/18 18:06 Agree with resident exam. Patient is speaking in complete sentences with no respiratory distress. Lungs are clear b/l with good air entry and no wheezing. - Medical Decision Making 06/24/18 18:08 PT presents to the ED with wheezing and shortness of breath consistent with prior asthma attacks. Resolving in the ED after nebs and steroids. Will discharge home with rx for nebs and steroids.
[2018-06-22] MEDS ORDERED: guaiFENesin/D-METHORPHAN HB 10 ML UNIT-DOSE CUPS ONE (12:55)
[2018-06-22] MEDS ORDERED: guaiFENesin/D-METHORPHAN HB 10 ML UNIT-DOSE CUPS PO ONE (12:55)
[2018-06-22] MEDS ORDERED: predniSONE 20 MG TABLET (UD) PO ONE (13:09)
[2018-06-22] MEDS ORDERED: predniSONE 20 MG TABLET (UD) ONE (13:12)
--- NOTE | 2018-06-22 13:12 | PDOC ---
History of Present Illness - General Chief Complaint: Asthma Stated Complaint: I HAVE ASTHMA Time Seen by Provider: 06/22/18 12:40 History Source: Patient Exam Limitations: No Limitations - History of Present Illness Initial Comments: 37 yo f w a pmh of Asthma, RA, Right ovarian tumors s/p R oopherectomy presents with SOB, wheezing for 3 days, some chest tightness comes in saying she is having an asthma attack. Her last asthma exacerbation was 2 years ago but she says this is exactly how it feels. She denies any recent fevers but says she has been coughing for the past 3 days and thinks she might have caught a common cold. Never been intubated or been to the ICU. Was admitted for asthma once. She denies current chest pain, headache, neck pain, back pain, abdominal pain, dysuria, frequency, urgency, ankle/wrist swelling or recent travel. PCP: None Rivet Hole Puncher: Pearl Barrientos PSH: cholecystectomy, bilateral inguinal hernias as child, Allergies: Penicillins, iodine, amoxicillin, morphine, contrast Social Hx: Denies, smoking, drinking, or other substance usage. Past History - Past Medical History Allergies/Adverse Reactions: Allergies Allergy/AdvReac Type Severity Reaction Status Date / Time Penicillins Allergy Severe Difficulty Verified 06/22/18 12:17 Breathing iodine Allergy Intermediate Rash Verified 06/22/18 12:17 amoxicillin Allergy Verified 06/22/18 12:17 morphine AdvReac Intermediate Verified 06/22/18 12:17 contrast Allergy Mild Rash Uncoded 06/22/18 12:17 oral contrast Allergy Mild Rash Uncoded 06/22/18 12:17 Home Medications: Ambulatory Orders Etanercept [Enbrel] 50 mg SQ WEEKLY 12/25/15 Albuterol Sulfate Inhaler - [Ventolin HFA Inhaler -] 1 - 2 inh PO PRN PRN Sulfasalazine 500 mg PO BID 01/07/18 Benzonatate [Tessalon Pearls -] 100 mg PO TID #21 capsule 06/22/18 Prednisone [Prednisone 50 MG TABLETS] 50 mg PO DAILY #7 tablet 06/22/18 Anemia: No Asthma: Yes Cancer: Yes (OVARIAN) Cardiac Disorders: No CVA: No COPD: No CHF: No Dementia: No Diabetes: No GI Disorders: No Disorders: No HTN: No Hypercholesterolemia: No Liver Disease: No Seizures: No Thyroid Disease: No - Surgical History Abdominal Surgery: Yes (INGUINAL HERNIA REPAIR BILATERAL) Appendectomy: No Cardiac Surgery: No Cholecystectomy: Yes Lung Surgery: No Neurologic Surgery: No Orthopedic Surgery: No - Immunization History Immunization Up to Date: Yes - Suicide/Smoking/Psychosocial Hx Smoking Status: No Smoking History: Never smoked Have you smoked in the past 12 months: No Number of Cigarettes Smoked Daily: 0 If you are a former smoker, when did you quit?: 1997 'Breaking Loose' booklet given: 01/07/18 Hx Alcohol Use: No Drug/Substance Use Hx: No Substance Use Type: None Hx Substance Use Treatment: No Review of Systems - Review of Systems Able to Perform ROS?: Yes Comments:: CONSTITUTIONAL: Absent: fever, no chills, no fatigue EYES: Absent: visual changes ENT: Absent: ear pain, no sore throat CARDIOVASCULAR: Present: Chest tightness Absent: no palpitations RESPIRATORY: Present: cough, SOB GI: Absent: abdominal pain, no nausea, no vomiting, no constipation, no diarrhea GENITOURINARY: Absent: dysuria, no frequency, no hematuria MUSKULOSKELETAL: Absent: back pain, no arthralgia, no myalgia SKIN: Absent: rash NEURO: Absent: headache *Physical Exam - Vital Signs Last Vital Signs Temp Pulse Resp BP Pulse Ox 98.5 F 91 H 18 127/79 97 06/22/18 12:16 06/22/18 12:16 06/22/18 12:16 06/22/18 12:16 06/22/18 12:16 - Physical Exam Comments: GENERAL: Well-appearing, well-nourished. No apparent distress. HEENT: Normocephalic, atraumatic. PERRL, EOM intact. CARDIOVASCULAR: Normal S1, S2. Regular rate and rhythm. PULMONARY: Diffuse expiratory wheezes. No crackles or rhonchi. ABDOMEN: Soft, non-distended, non-tender. EXTREMITIES: Normal ROM in all four extremities. No gross deformities. SKIN: Warm, dry. No rash NEUROLOGICAL: No focal neurological deficits. Moderate Sedation - Procedure Monitoring Vital Signs: Procedure Monitoring Vital Signs Temperature 98.5 F 06/22/18 12:16 Pulse Rate 91 H 06/22/18 12:16 Respiratory Rate 18 06/22/18 12:16 Blood Pressure 127/79 06/22/18 12:16 O2 Sat by Pulse Oximetry (%) 97 06/22/18 12:16 ED Treatment Course - Medications Given in the ED: ED Medications Discontinued Medications Generic Name Dose Route Start Last Admin Trade Name Rosalia PRN Reason Stop Dose Admin Albuterol/Ipratropium 1 amp 06/22/18 12:40 06/22/18 12:53 Duoneb - NEB 06/22/18 12:41 1 amp ONCE ONE Administration Guaifenesin 10 ml 06/22/18 12:55 06/22/18 13:03 Robitussin Dm - PO 06/22/18 12:56 10 ml ONCE ONE Administration Medical Decision Making - Medical Decision Making 37 yo f w a pmh of Asthma, RA, Right ovarian tumors s/p R oopherectomy presents with SOB, wheezing for 3 days, cough, some chest tightness comes in saying she is having an asthma attack. DDx IBNLT: Asthma exacerbation, URI, other infection, PNA, pneumothorax Plan: Duonebs, robitussin, Peak flow, re-assess. She got a 200 peak flow when she came in. After 2 duonebs patient feels much better and requests to go home. will give 3rd duoneb and DC. After 3rd duoneb she got a 350 peak flow score. *DC/Admit/Observation/Transfer Diagnosis at time of Disposition: Asthma exacerbation - Discharge Dispostion Disposition: HOME Condition at time of disposition: Stable Decision to Admit order: No - Prescriptions Prescriptions: Benzonatate [Tessalon Pearls -] 100 mg PO TID #21 capsule Prednisone [Prednisone 50 MG TABLETS] 50 mg PO DAILY #7 tablet - Referrals Referrals: [facility] [place] [facility] [place] [Provider Group] - Patient Instructions Printed Discharge Instructions: Asthma -- Adult Additional Instructions: You came into the ER with SOB, wheezing, and difficulty breathing. We believe you are having an asthma exacerbation. Make sure to schedule a follow up appointment with a primary care doctor we are connecting you with. See attached number. We are sending medications to your pharmacy. Please make sure to go and pick them up. Please come back to the ER immediately if your breathing becomes very difficult , you have severe SOB, or any other new or worsening concerns. Thank you for coming to the [facility] ER. We hope you feel better soon! Print Language: SWISS - Post Discharge Activity
== END 2018-06-22 13:49 | disposition home or self-care (01) ==
LOC: FER 12:15
PROC: 3E0F7GC Introduction of Other Therapeutic Substance into Respiratory Tract, Via Natural or Artificial Opening (ICD-10-PCS; principal; 2018-06-22)
DX: J45.901 Unspecified asthma with (acute) exacerbation (principal); Z87.891 Personal history of nicotine dependence; Z85.43 Personal history of malignant neoplasm of ovary
CPT/HCPCS: 99281-25

== ENCOUNTER 2018-10-07 22:32 | Emergency (ER) | payer SELFPAY ==
--- NOTE | 2018-10-07 22:40 | PDOC ---
History of Present Illness - General Chief Complaint: Allergic Reaction Stated Complaint: EYE SWELLING Time Seen by Provider: 10/07/18 22:40 History Source: Patient Exam Limitations: No Limitations - History of Present Illness Initial Comments: 10/07/18 22:43 This is a 38-year-old female comes in complaining of ALLERGIC reaction. Patient said that all of a sudden her eyes started swelling and itching and watering. Patient is also complaining of some mild congestion. Patient denied any fevers or chills. Patient denied any pain. Patient took a Benadryl with some improvement in her symptoms and came in for evaluation. Patient does have a history of seasonal ALLERGIES. Allergies: as per nursing notes Past Medical History: none Social history: Lives with family. No smoking. No alcohol. No illicit drugs. Surgical history: None General: No fevers or chills, no weakness, no weight loss HEENT: No change in vision. No sore throat,. No ear pain, + left eye swelling and itching with some tearing CardioVascular: no chest discomfort. No shortness of breath Respiratory:No cough, or wheezing. Gastrointestinal: no nausea, vomiting, diarrhea or constipation, No rectal bleeding Genitourinary: No dysuria, hematuria, or frequency Musculoskeletal: No joint or muscle pain or swelling Neurologic: No headache, vertigo, dizziness or loss of consciousness Psychiatric: nor depression Skin: No rashes or easy bruising Endocrine: no increased thirst or abnormal weight change Allergic: no skin or latex allergy All other systems reviewed and normal GENERAL: The patient is awake, alert, and fully oriented, in no acute distress. HEAD: Normal with no signs of trauma. EYES: Pupils equal, round and reactive to light, extraocular movements intact, sclera anicteric, conjunctiva clear. Left eye lid it has some moderate edema with some mild erythema of the area, there is no increase in warmth there is clear discharge from the eye otherwise it is normal EXTREMITIES:atraumatic, Normal range of motion, no edema. NEUROLOGICAL: Normal speech, normal gait. PSYCH: Normal mood, normal affect. SKIN: Warm, Dry, normal turgor, no rashes or lesions noted. Assessment and plan: This is a 38-year-old female with probable seasonal ALLERGY reaction that is affecting her left eye. Patient some Benadryl at home was given prednisone here and will be sent out on a Medrol Dosepak taper Past History - Past Medical History Allergies/Adverse Reactions: Allergies Allergy/AdvReac Type Severity Reaction Status Date / Time Penicillins Allergy Severe Difficulty Verified 06/22/18 12:17 Breathing iodine Allergy Intermediate Rash Verified 06/22/18 12:17 amoxicillin Allergy Verified 06/22/18 12:17 morphine AdvReac Intermediate Verified 06/22/18 12:17 contrast Allergy Mild Rash Uncoded 06/22/18 12:17 oral contrast Allergy Mild Rash Uncoded 06/22/18 12:17 Home Medications: Ambulatory Orders Etanercept [Enbrel] 50 mg SQ WEEKLY 12/25/15 Albuterol Sulfate Inhaler - [Ventolin HFA Inhaler -] 1 - 2 inh PO PRN PRN Sulfasalazine 500 mg PO BID 01/07/18 Anemia: No Asthma: Yes Cancer: Yes (OVARIAN) Cardiac Disorders: No CVA: No COPD: No CHF: No Dementia: No Diabetes: No GI Disorders: No Disorders: No HTN: No Hypercholesterolemia: No Liver Disease: No Seizures: No Thyroid Disease: No - Surgical History Abdominal Surgery: Yes (INGUINAL HERNIA REPAIR BILATERAL) Appendectomy: No Cardiac Surgery: No Cholecystectomy: Yes Lung Surgery: No Neurologic Surgery: No Orthopedic Surgery: No - Immunization History Immunization Up to Date: Yes - Suicide/Smoking/Psychosocial Hx Smoking Status: No Smoking History: Never smoked Have you smoked in the past 12 months: No Number of Cigarettes Smoked Daily: 0 If you are a former smoker, when did you quit?: 1997 'Breaking Loose' booklet given: 01/07/18 Hx Alcohol Use: No Drug/Substance Use Hx: No Substance Use Type: None Hx Substance Use Treatment: No *DC/Admit/Observation/Transfer Diagnosis at time of Disposition: Allergic reaction Qualifiers: Encounter type: initial encounter Qualified Code(s): T78.40XA - Allergy, unspecified, initial encounter - Discharge Dispostion Disposition: HOME - Referrals - Patient Instructions Printed Discharge Instructions: DI for Eye Allergic Reaction Additional Instructions: Take the Medrol Dosepak and taper as per the instructions on the pack. In addition you can also get some [id number] Miguelina or Claritin if symptoms begin to return Return to the emergency department immediately with ANY new, persistent or worsening symptoms. Continue any medications as previously prescribed by your physician. You should follow up with your primary doctor as soon as possible regarding today's emergency department visit. . Please make sure your doctor reviews the results of your emergency evaluation. Thank you for coming to the Emergency Department today for your care. It was a pleasure to see you today. Please note that your evaluation is INCOMPLETE until you follow-up with your doctor. - Post Discharge Activity
[2018-10-07] MEDS ORDERED: predniSONE 20 MG TABLET (UD) PO ONE (22:42)
[2018-10-07 22:43] VITALS: BP 115/63; PULSE 61; TEMP 97.8; BMI 36.6
[2018-10-07] MEDS ORDERED: predniSONE 20 MG TABLET (UD) ONE (22:44)
== END 2018-10-07 22:53 | disposition home or self-care (01) ==
LOC: FER 22:32
DX: T78.40XA Allergy, unspecified, initial encounter (principal); H02.846 Edema of left eye, unspecified eyelid; Z88.0 Allergy status to penicillin; Z88.9 Allergy status to unspecified drugs, medicaments and biological substances; Z88.1 Allergy status to other antibiotic agents; Z91.041 Radiographic dye allergy status
CPT/HCPCS: 99282-25

== ENCOUNTER 2019-07-25 13:04 | Emergency (ER) | payer BC ==
[2019-07-25 13:18] VITALS: BP 119/64; PULSE 77; TEMP 98.3; BMI 33.3
[2019-07-25] MEDS ORDERED: ONDANSETRON *ODT* 4 MG TABLET SL ONE (14:18)
--- NOTE | 2019-07-25 14:21 | PDOC ---
Attending Attestation - Resident Resident Name: James Lamas - ED Attending Attestation I have performed the following: I have examined & evaluated the patient, The case was reviewed & discussed with the resident, I agree w/resident's findings & plan, Exceptions are as noted - HPI HPI: 07/25/19 14:33 Patient is recovering from mild gastroenteritis, still complains of intermittent nausea. However she is holding down small amounts of p.o. fluid, and there is been no persistent vomiting or diarrhea. There is no abdominal pain. Past medical history is significant for JRA, has been on Humira in the past, but no biological therapy for over 5 years. She is now maintained on sulfasalazine. No significant infections in the past. She denies the possibility of because she has only homosexual relationships. - Physicial Exam PE: 07/25/19 14:34 Physical exam: Alert and oriented cheerful and cooperative no acute distress. Denies pain Afebrile, vital signs normal HEENT normal Neck supple without bruit mass or nodes Chest clear CV regular without murmur rub or gallop Abdomen nondistended. Bowel sounds normal. Soft without mass tenderness organomegaly Skin clear, no rash, adequate turgor and wet mucous membranes Extremities no CCE Neurological intact - Medical Decision Making 07/25/19 14:35 Assessment: Viral gastroenteritis, mild, resolving Plan: Zofran as needed. Push p.o. fluids. Maintain clear liquid diet until symptoms resolved. Return to ER if symptoms worse otherwise follow-up primary physician as directed.
[2019-07-25] MEDS ORDERED: ONDANSETRON *ODT* 4 MG TABLET ONE (14:22)
--- NOTE | 2019-07-25 14:23 | PDOC ---
History of Present Illness - General Chief Complaint: Nausea/Vomiting Stated Complaint: VOMITING AFTER EATING CHILLI Time Seen by Provider: 07/25/19 13:21 - History of Present Illness Initial Comments: 07/25/19 14:19 HPI: 39 y/o F with hx of asthma, RA on sulfasalazine, right ovarian tumor s/p oopherectomy presenting with nausea requesting medication. She ate chili 2 nights ago and yesterday woke up with nausea and emesis with upset stomach. 3 episodes of emesis yesterday and 1 today. She is currently tolerating liquids and crackers and jello but still feels intermittent nausea. Denies fever, chills , cough, chest pain, SOB, abd pain, dysuria, diarrhea. Denies biologics or immunosuppressive therapy for RA since 5 years ago. Only sexually active with women PMHx: as noted above ROS: as noted SHx: Denies tobacco use; no alcohol use; no rec drugs Allergies: NKDA ROS: GENERAL/CONSTITUTIONAL: No fever or chills. No weakness. HEAD, EYES, EARS, NOSE AND THROAT: No change in vision. No ear pain or discharge. No sore throat. CARDIOVASCULAR: No chest pain or shortness of breath RESPIRATORY: No cough, wheezing, or hemoptysis. GASTROINTESTINAL: +nausea; no vomiting, diarrhea or constipation. GENITOURINARY: No dysuria, frequency, or change in urination. MUSCULOSKELETAL: No joint or muscle swelling or pain. No neck or back pain. SKIN: No rash NEUROLOGIC: No headache, vertigo, loss of consciousness, or change in strength/ sensation. ENDOCRINE: No increased thirst. No abnormal weight change HEMATOLOGIC/LYMPHATIC: No anemia, easy bleeding, or history of blood clots. ALLERGIC/IMMUNOLOGIC: No hives or skin allergy. PE: GENERAL: Awake, alert, and fully oriented, no acute distress HEAD: No signs of trauma, normocephalic, atraumatic EYES: EOMI, sclera anicteric, conjunctiva clear ENT: Auricles normal inspection, hearing grossly normal, nares patent, oropharynx clear without exudates. Moist mucosa NECK: Normal ROM, no lymphadenopathy LUNGS: No increased work of breathing, symmetrical chest rise, mild wheezing in left lung aguilar HEART: Regular rate, regular rhythm, normal S1 and S2, no murmur, peripheral pulses 2+ and equal bilaterally. ABDOMEN: Soft, nondistended, nontender, normoactive bowel sounds. No guarding, no rebound. No masses. No CVAT MUSCULOSKELETAL: FROM NEUROLOGICAL: Cranial nerves II through XII grossly intact. Normal speech, normal gait, no focal sensorimotor deficits SKIN: Warm, Dry, normal turgor, no rashes or lesions noted Past History - Past Medical History Allergies/Adverse Reactions: Allergies Allergy/AdvReac Type Severity Reaction Status Date / Time Penicillins Allergy Severe Difficulty Verified 07/25/19 13:07 Breathing iodine Allergy Intermediate Rash Verified 07/25/19 13:07 amoxicillin Allergy Verified 07/25/19 13:07 morphine AdvReac Intermediate Verified 07/25/19 13:07 contrast Allergy Mild Rash Uncoded 07/25/19 13:07 oral contrast Allergy Mild Rash Uncoded 07/25/19 13:07 Home Medications: Ambulatory Orders Sulfasalazine 500 mg PO BID 01/07/18 Ondansetron [Zofran *Odt*] 4 mg SL TID PRN #15 od.tablet 07/25/19 Anemia: No Asthma: Yes Cancer: Yes (OVARIAN) Cardiac Disorders: No CVA: No COPD: No CHF: No Dementia: No Diabetes: No GI Disorders: No Disorders: No HTN: No Hypercholesterolemia: No Liver Disease: No Seizures: No Thyroid Disease: No - Surgical History Abdominal Surgery: Yes (INGUINAL HERNIA REPAIR BILATERAL) Appendectomy: No Cardiac Surgery: No Cholecystectomy: Yes Lung Surgery: No Neurologic Surgery: No Orthopedic Surgery: No - Immunization History Immunization Up to Date: Yes - Psycho Social/Smoking Cessation Hx Smoking Status: No Smoking History: Never smoked Have you smoked in the past 12 months: No Number of Cigarettes Smoked Daily: 0 If you are a former smoker, when did you quit?: 1997 Information on smoking cessation initiated: No 'Breaking Loose' booklet given: 01/07/18 Hx Alcohol Use: No Drug/Substance Use Hx: No Substance Use Type: None Hx Substance Use Treatment: No *Physical Exam - Vital Signs Last Vital Signs Temp Pulse Resp BP Pulse Ox 98.3 F 77 16 119/64 97 07/25/19 13:06 07/25/19 13:06 07/25/19 13:06 07/25/19 13:06 07/25/19 13:06 Medical Decision Making - Medical Decision Making 07/25/19 14:23 39 y/o F with hx of asthma, RA on sulfasalazine, right ovarian tumor s/p oopherectomy presenting with nausea requesting medication after 4 episodes of emesis in the past 2 days. VSS, AF. PE unremarkable -will give zofran -discussed return pcxns -zofran script to pharmacy Discharge - Discharge Information Problems reviewed: Yes Clinical Impression/Diagnosis: Nausea & vomiting Qualifiers: Vomiting type: unspecified Vomiting Intractability: non-intractable Qualified Code(s): R11.2 - Nausea with vomiting, unspecified Condition: Stable Disposition: HOME - Additional Discharge Information Prescriptions: Ondansetron [Zofran *Odt*] 4 mg SL TID PRN #15 od.tablet PRN Reason: Nausea And/Or Vomiting - Follow up/Referral - Patient Discharge Instructions Patient Printed Discharge Instructions: DI for Nausea -- Adult, DI for Vomiting -- Adult Additional Instructions: Additional Instructions: Please return to the emergency department with any new or worsening symptoms or concerns including fever, worse abdominal pain, persistent vomiting. Please follow up with your primary care physician within 72 hours. You may take zofran 4mg 1-2 tablets every 8 hours as needed for nausea and vomiting - Post Discharge Activity Work/Back to School Note: Back to Work
== END 2019-07-25 14:30 | disposition home or self-care (01) ==
LOC: FER 13:04
DX: R11.2 Nausea with vomiting, unspecified (principal); Z88.0 Allergy status to penicillin; Z88.6 Allergy status to analgesic agent; Z91.041 Radiographic dye allergy status; Z88.8 Allergy status to other drugs, medicaments and biological substances
CPT/HCPCS: 99282-25; Q0162

== ENCOUNTER 2020-01-23 11:39 | Emergency (ER) | payer BC ==
[2020-01-23] MEDS ORDERED: ALBUTEROL SO4 0.083% IH SOL 2.5 MG/3 ML VIAL.NEB. NEB ONE ×2 (11:47→12:33)
--- NOTE | 2020-01-23 11:47 | PDOC ---
History of Present Illness - General Chief Complaint: Respiratory Stated Complaint: sob Time Seen by Provider: 01/23/20 11:45 - History of Present Illness Initial Comments: 01/23/20 15:00 Chief complaint: Wheezing, chest tightness, shortness of breath gradually worsening over 2 to 3 days HPI: As above. Using home nebulizer and albuterol inhaler without sustained relief. No recent hospitalizations. Last course of steroids September 2019. Never intubated. Review of systems: No fever/chills, productive cough, abdominal pain, visual or focal neurologic symptoms, unsteadiness of gait Past medical history: Asthma as noted above Social/family history reviewed and noncontributory Physical exam: Alert and oriented well-developed well-nourished no acute distress cheerful and cooperative. No tachypnea or dyspnea Afebrile, vital signs normal including respiratory rate and oxygen saturation on room air HEENT normal Neck supple without bruit mass or nodes Lungs with decreased breath sounds bilaterally, symmetric, with occasional end expiratory wheezes at both bases. No tachypnea or dyspnea. Abdomen soft nontender without mass organomegaly Neurological intact Impression: Exacerbation of mild intermittent asthma. No sign of pneumonia or significant chest infection Plan: Nebulizers and short course of steroids. Return to ER if worse. 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 Past History - Medical History Allergies/Adverse Reactions: Allergies Allergy/AdvReac Type Severity Reaction Status Date / Time Penicillins Allergy Severe Difficulty Verified 01/23/20 11:40 Breathing iodine Allergy Intermediate Rash Verified 01/23/20 11:40 amoxicillin Allergy Verified 01/23/20 11:40 morphine AdvReac Intermediate Verified 01/23/20 11:40 contrast Allergy Mild Rash Uncoded 01/23/20 11:40 oral contrast Allergy Mild Rash Uncoded 01/23/20 11:40 Home Medications: Ambulatory Orders Albuterol 2.5/Ipratropium 0.5 [Duoneb -] 1 neb NEB Q4H 09/04/19 Albuterol Sulfate Inhaler - [Ventolin HFA Inhaler -] 1 - 2 inh PO Q4H #1 inhaler 09/04/19 Sulfasalazine 500 mg PO DAILY 01/23/20 predniSONE [Deltasone -] 30 mg PO DAILY #30 tablet 01/23/20 Anemia: No Asthma: Yes Cancer: Yes (OVARIAN) Cardiac Disorders: No CVA: No COPD: No CHF: No Dementia: No Diabetes: No GI Disorders: No Disorders: No HTN: No Hypercholesterolemia: No Liver Disease: No Seizures: No Thyroid Disease: No - Surgical History Abdominal Surgery: Yes (INGUINAL HERNIA REPAIR BILATERAL) Appendectomy: No Cardiac Surgery: No Cholecystectomy: Yes Lung Surgery: No Neurologic Surgery: No Orthopedic Surgery: No - Immunization History Immunization Up to Date: Yes - Psycho-Social/Smoking History Smoking Status: No Smoking History: Former smoker Have you smoked in the past 12 months: No Number of Cigarettes Smoked Daily: 0 If you are a former smoker, when did you quit?: 15 YEARS 'Breaking Loose' booklet given: 01/07/18 Medical Decision Making - Medical Decision Making 01/23/20 15:08 After 2 nebulizer treatments, the patient feels much better. Breath sounds are clear in both lung aguilar, with good air movement. No wheezes are appreciated. Continue short course of oral steroids and follow-up with primary physician, taper steroids as directed by primary doctor. Fully ambulatory, no dyspnea at discharge to follow-up as directed Discharge - Discharge Information Problems reviewed: Yes Clinical Impression/Diagnosis: Asthma exacerbation Qualifiers: Asthma severity: mild Asthma persistence: intermittent Qualified Code(s): J45.21 - Mild intermittent asthma with (acute) exacerbation Condition: Improved Disposition: HOME - Admission No - Additional Discharge Information Prescriptions: predniSONE [Deltasone -] 30 mg PO DAILY #30 tablet - Follow up/Referral - Patient Discharge Instructions Patient Printed Discharge Instructions: DI for Asthma -- Adult Additional Instructions: Return to ER immediately if worse. Otherwise follow-up primary physician Use nebulizer as directed at home. Taper your steroids according to your doctor's recommendation. - Post Discharge Activity Work/Back to School Note: Back to Work
[2020-01-23 11:57] VITALS: BP 116/71; PULSE 89; TEMP 98.2; BMI 28.3
[2020-01-23] MEDS ORDERED: predniSONE 10 MG TABLET (UD) PO ONE (12:33)
[2020-01-23] MEDS ORDERED: predniSONE 10 MG TABLET (UD) ONE (12:39)
[2020-01-23] MEDS ORDERED: predniSONE 20 MG TABLET (UD) ONE (12:39)
== END 2020-01-23 14:05 | disposition home or self-care (01) ==
LOC: FER 11:39
PROC: 3E0F7GC Introduction of Other Therapeutic Substance into Respiratory Tract, Via Natural or Artificial Opening (ICD-10-PCS; principal; 2020-01-23)
DX: J45.21 Mild intermittent asthma with (acute) exacerbation (principal)
CPT/HCPCS: 99284-25

== ENCOUNTER 2021-05-20 11:32 | Emergency (ER) | payer BC ==
[2021-05-20 11:48] VITALS: BP 100/70; PULSE 97; TEMP 97.9; BMI 35.7
[2021-05-20] MEDS ORDERED: oxyCODONE HCL 5 MG TABLET PO ONE ×2 (13:20→17:30)
[2021-05-20] MEDS ORDERED: ONDANSETRON 4 MG/2 ML VIAL IVPUSH ONE (13:21)
[2021-05-20] MEDS ORDERED: SODIUM CHLORIDE 1,000 ML IV STA (13:21)
[2021-05-20] MEDS ORDERED: oxyCODONE HCL 5 MG TABLET ONE ×3 (14:24→18:07)
[2021-05-20] MEDS ORDERED: ONDANSETRON 4 MG/2 ML VIAL ONE (14:25)
[2021-05-20 14:54] LABS: URINE APPEARANCE CLEAR; URINE BILIRUBIN NEGATIVE (NEGATIVE); URINE COLOR YELLOW; URINE GLUCOSE (UA) NEGATIVE (NEGATIVE); URINE KETONE NEGATIVE (NEGATIVE); URINE LEUK ESTERASE NEGATIVE (NEGATIVE); URINE NITRITE NEGATIVE (NEGATIVE); URINE PROTEIN NEGATIVE (NEGATIVE); URINE UROBILINOGEN 0.2 mg/dL (0.2-1.0)
[2021-05-20 14:57] LABS: HCG,QUALITATIVE URINE Negative
[2021-05-20 15:11] LABS: BASO % 0.8 % (0-2.0); EOS % 0.5 % (0-4.5); HEMATOCRIT 46.5 % (32.4-45.2); HEMOGLOBIN 15.7 GM/dL (10.7-15.3); LYMPH % 39.6 % (8-40); MCH 28.9 pg (25.7-33.7); MCHC 33.7 g/dl (32.0-36.0); MEAN CELL VOLUME 85.7 fl (80-96); MEAN PLT VOLUME 7.4 fl (7.5-11.1); MONO % 6.7 % (3.8-10.2); NEUT % 52.4 % (42.8-82.8); PLATELET COUNT 290 10^3/uL (134-434); RBC 5.43 M/mm3 (3.60-5.2); RDW 13.5 % (11.6-15.6)
[2021-05-20 15:19] LABS: INR 1.09 (0.83-1.09); PROTHROMBIN TIME (PATIENT) 12.2 SEC (9.7-13.0)
[2021-05-20 15:27] LABS: CHLORIDE 107 mmol/L (98-107); SODIUM 139 mmol/L (136-145)
[2021-05-20 15:30] LABS: ALBUMIN 4.4 g/dl (3.4-5.0); ANION GAP 8 MMOL/L (8-16); CALCIUM 9.8 mg/dL (8.5-10.1); CO2 24 mmol/L (21-32); GLUCOSE,RANDOM 91 mg/dL (74-106); LIPASE 261 U/L (73-393)
[2021-05-20 15:31] LABS: BLOOD UREA NITROGEN 17.2 mg/dL (7-18)
[2021-05-20 15:33] LABS: CREATININE 0.7 mg/dL (0.55-1.3); SGOT/AST 23 U/L (15-37); SGPT/ALT 28 U/L (13-61)
[2021-05-20 15:35] LABS: BILIRUBIN,TOTAL 0.4 mg/dL (0.2-1); TOT PROT 8.9 g/dl (6.4-8.2)
[2021-05-20 15:36] LABS: ALK PHOS 138 U/L (45-117)
[2021-05-20] MEDS ORDERED: MAG HYDROX/AL HYDROX/SIMETH -MYLANTA- ORAL SUSPENSION PO ONE (18:05)
[2021-05-20] MEDS ORDERED: MAG HYDROX/AL HYDROX/SIMETH 30 ML UNIT-DOSE CUP ONE (18:07)
== END 2021-05-20 18:54 | disposition home or self-care (01) ==
LOC: JER 11:32
PROC: 3E033GC Introduction of Other Therapeutic Substance into Peripheral Vein, Percutaneous Approach (ICD-10-PCS; principal; 2021-05-20)
PROC: 3E0337Z Introduction of Electrolytic and Water Balance Substance into Peripheral Vein, Percutaneous Approach (ICD-10-PCS; 2021-05-20)
DX: R10.11 Right upper quadrant pain (principal)
CPT/HCPCS: 36415; 74176-TC; 76705-TC; 80053; 81003; 82550; 83690; 84484; 84703; 85025; 85610; 87086; 93005; 93010; 99285-25

== ENCOUNTER 2021-11-09 08:12 | Emergency (ER) | payer BC ==
[2021-11-09 08:38] VITALS: BP 121/82; PULSE 81; TEMP 98.4; BMI 36.6
== END 2021-11-09 08:40 | disposition home or self-care (01) ==
LOC: FER 08:12
DX: H10.32 Unspecified acute conjunctivitis, left eye (principal); H00.014 Hordeolum externum left upper eyelid
CPT/HCPCS: 99283-25

== ENCOUNTER 2022-01-21 09:53 | Emergency (ER) | payer BC ==
[2022-01-21 10:20] VITALS: BP 136/91; PULSE 84; RESP 16; TEMP 98.3; BMI 36.6
[2022-01-21 11:09] LABS: HEMATOCRIT 41.1 % (32.4-45.2); HEMOGLOBIN 14.5 G/dL (10.7-15.3); MCH 30.8 pg (25.7-33.7); MCHC 35.3 g/dl (32.0-36.0); MEAN CELL VOLUME 87.2 fl (80-96); MEAN PLT VOLUME 7.4 fl (7.5-11.1); PLATELET COUNT 224.8 10^3/uL (134-434); RBC 4.71 10^6/uL (3.60-5.2); RDW 14.2 % (11.6-15.6); WHITE BLOOD COUNT 6.6 10^3/uL (4.0-10.8)
[2022-01-21 11:30] LABS: ALBUMIN 3.9 g/dl (3.4-5.0); ALK PHOS 101 U/L (45-117); ANION GAP 4 MMOL/L (8-16); BILIRUBIN,TOTAL 0.5 mg/dl (0.2-1); CALCIUM 9.3 mg/dl (8.5-10); CHLORIDE 107 mmol/L (98-107); CO2 24 mmol/L (21-32); CREATININE 0.7 mg/dl (0.55-1.3); GLUCOSE,RANDOM 96 mg/dl (74-106); SGOT/AST 23 U/L (15-37); SGPT/ALT 22 U/L (13-61); SODIUM 135 mmol/L (136-145); TOT PROT 7.1 g/dl (6.4-8.2)
[2022-01-21 11:36] LABS: PLATELET ESTIMATE ADEQUATE
== END 2022-01-21 13:59 | disposition home or self-care (01) ==
LOC: FER 09:53
DX: G56.82 Other specified mononeuropathies of left upper limb (principal)
CPT/HCPCS: 36415; 71045-TC-FY; 80053; 84484; 85027; 93005; 99285-25

== ENCOUNTER 2022-04-19 13:42 | Emergency (ER) | payer BC ==
[2022-04-19 14:39] VITALS: BP 124/80; PULSE 85; RESP 19; TEMP 99; BMI 33.3
[2022-04-19] MEDS ORDERED: CYCLOBENZAPRINE HCL 10 MG TABLET (FP) PO ONE (15:48)
[2022-04-19] MEDS ORDERED: KETOROLAC TROMETHAMINE 60 MG/2 ML VIAL IM ONE (15:48)
[2022-04-19] MEDS ORDERED: KETOROLAC TROMETHAMINE 30 MG/1 ML VIAL ONE (15:51)
[2022-04-19] MEDS ORDERED: CYCLOBENZAPRINE HCL 5 MG TABLET ONE (15:51)
== END 2022-04-19 17:15 | disposition home or self-care (01) ==
LOC: FER 13:42
PROC: 3E0233Z Introduction of Anti-inflammatory into Muscle, Percutaneous Approach (ICD-10-PCS; principal; 2022-04-19)
DX: M54.50 Low back pain, unspecified (principal)
CPT/HCPCS: 81003; 84703; 87086; 99284-25

== ENCOUNTER 2022-04-28 09:06 | Observation (INO) | payer BC ==
[2022-04-28] MEDS ORDERED: LIDOCAINE 5% TOPICAL PATCH TP ONE (09:17)
[2022-04-28 09:26] VITALS: BMI 39.1
[2022-04-28] MEDS ORDERED: LIDOCAINE 5% TOPICAL PATCH ONE (09:39)
[2022-04-28] MEDS ORDERED: KETOROLAC TROMETHAMINE 30 MG/1 ML VIAL IM ONE (14:03)
[2022-04-28] MEDS ORDERED: KETOROLAC TROMETHAMINE 30 MG/1 ML VIAL ONE (14:07)
[2022-04-28] MEDS ORDERED: HYDROmorphone HCL CARPU-JECT 1 MG/1 ML DISP.SYRIN IVPUSH ONE (17:08)
[2022-04-28] MEDS ORDERED: HYDROmorphone HCL/PF 1 MG/ML VIAL ONE (17:38)
[2022-04-28 17:49] LABS: HEMOGLOBIN 14.2 G/dL (10.7-15.3); MCH 29.7 pg (25.7-33.7); MCHC 33.7 g/dl (32.0-36.0); MEAN CELL VOLUME 88.1 fl (80-96); MEAN PLT VOLUME 7.2 fl (7.5-11.1); RBC 4.77 10^6/uL (3.60-5.2); WHITE BLOOD COUNT 7.8 10^3/uL (4.0-10.8)
[2022-04-28 17:58] LABS: INR 1.06 (0.83-1.09); PROTHROMBIN TIME (PATIENT) 12.2 SEC (9.7-13.0)
[2022-04-28 18:01] LABS: ACTIVATED PTT 31.3 SECONDS (25.2-36.5)
[2022-04-28 18:07] LABS: ALBUMIN 3.9 g/dl (3.4-5.0); BILIRUBIN,TOTAL 0.7 mg/dl (0.2-1); CALCIUM 9.3 mg/dl (8.5-10); CREATININE 0.8 mg/dl (0.55-1.3); TOT PROT 7.3 g/dl (6.4-8.2)
[2022-04-28 18:30] LABS: PLATELET ESTIMATE ADEQUATE
[2022-04-28] MEDS ORDERED: ALBUTEROL SO4 HFA INHALER IH PRN (21:16)
[2022-04-28] MEDS: LIDOCAINE PATCH REMOVAL MC SCH (22:25)
[2022-04-28] MEDS ORDERED: ALBUTEROL SO4 2.5/IPRATROPIUM 0.5 INH SOL 3 ML VIAL.NEB. NEB ONE (23:45)
[2022-04-29] MEDS: ACETAMINOPHEN 1000 MG/100 ML BAG IVPB PRN ×2 (01:27→07:46)
[2022-04-29 08:25] LABS: CREATININE 0.6 mg/dl (0.55-1.3)
[2022-04-29] MEDS ORDERED: methylPREDNISolone 4 MG TABLET PO ONE (08:30)
[2022-04-29] MEDS: LIDOCAINE 5% TOPICAL PATCH TP SCH (09:33)
[2022-04-29 11:02] LABS: BASO % 0.8 % (0-2.0); EOS % 6.7 % (0-4.5); HEMATOCRIT 39.8 % (32.4-45.2); HEMOGLOBIN 13.6 GM/dL (10.7-15.3); LYMPH % 47.4 % (8-40); MCH 29.8 pg (25.7-33.7); MCHC 34.1 g/dl (32.0-36.0); MEAN CELL VOLUME 87.2 fl (80-96); MEAN PLT VOLUME 7.1 fl (7.5-11.1); NEUT % 39.1 % (42.8-82.8); PLATELET COUNT 221 10^3/uL (134-434); RBC 4.56 M/mm3 (3.60-5.2); WHITE BLOOD COUNT 5.2 K/mm3 (4.0-10.0)
[2022-04-29] MEDS: oxyCODONE HCL 5 MG TABLET PO PRN ×3 (13:19→21:54)
[2022-04-29] MEDS: ACETAMINOPHEN 325 MG TABLET (FP) PO PRN ×2 (17:33→20:30)
[2022-04-29] MEDS: LIDOCAINE PATCH REMOVAL MC SCH (22:20)
[2022-04-30] MEDS: ACETAMINOPHEN 325 MG TABLET (FP) PO PRN (07:52)
[2022-04-30] MEDS: oxyCODONE HCL 5 MG TABLET PO PRN (07:52)
[2022-04-30] MEDS: LIDOCAINE 5% TOPICAL PATCH TP SCH (09:23)
[2022-04-30] MEDS ORDERED: methylPREDNISolone 4 MG TABLET PO ONE (10:00)
[2022-04-30] MEDS ORDERED: ENOXAPARIN NA (PORCINE) 40 MG/0.4 ML DISP.SYRIN SQ SCH (10:00)
[2022-04-30 14:09] VITALS: BP 131/39; PULSE 84; RESP 17; TEMP 99.4
== END 2022-04-30 16:03 | disposition home or self-care (01) ==
LOC: FER 09:06 → FM/S 17:14
PROVIDERS: ADMIT Internal Medicine; ATTEND Internal Medicine
PROC: 3E033NZ Introduction of Analgesics, Hypnotics, Sedatives into Peripheral Vein, Percutaneous Approach (ICD-10-PCS; principal; 2022-04-28)
PROC: 3E0F7GC Introduction of Other Therapeutic Substance into Respiratory Tract, Via Natural or Artificial Opening (ICD-10-PCS; 2022-04-28)
PROC: 3E023GC Introduction of Other Therapeutic Substance into Muscle, Percutaneous Approach (ICD-10-PCS; 2022-04-28)
DX: M54.50 Low back pain, unspecified (principal); M06.9 Rheumatoid arthritis, unspecified; J45.909 Unspecified asthma, uncomplicated; E66.01 Morbid (severe) obesity due to excess calories; Z68.39 Body mass index [BMI] 39.0-39.9, adult; Z88.0 Allergy status to penicillin; Z88.8 Allergy status to other drugs, medicaments and biological substances; Z88.5 Allergy status to narcotic agent
CPT/HCPCS: 36415; 72128-TC; 72131-TC; 72148-TC; 80048; 80053; 85025; 85027; 85610; 85651; 85730; 86140; 86850; 86900; 86901; 94640; 97116-GP; 97161-GP; 99285-25; C9803-CS; G0378; U0003; U0005

== ENCOUNTER 2022-06-07 12:47 | Emergency (ER) | payer BC ==
[2022-06-07 12:59] VITALS: BP 125/78; PULSE 73; RESP 18; TEMP 97.9; BMI 39.9
[2022-06-07] MEDS ORDERED: SODIUM CHLORIDE 1,000 ML IV STA (13:21)
[2022-06-07] MEDS ORDERED: ONDANSETRON 4 MG/2 ML VIAL IVPUSH ONE (13:21)
[2022-06-07 13:55] LABS: HEMATOCRIT 43.4 % (32.4-45.2); HEMOGLOBIN 14.8 G/dL (10.7-15.3); MCH 29.6 pg (25.7-33.7); MCHC 34.2 g/dl (32.0-36.0); MEAN CELL VOLUME 86.7 fl (80-96); MEAN PLT VOLUME 6.9 fl (7.5-11.1); PLATELET COUNT 279.1 10^3/uL (134-434); RBC 5.01 10^6/uL (3.60-5.2); RDW 13.8 % (11.6-15.6); WHITE BLOOD COUNT 7.1 10^3/uL (4.0-10.8)
[2022-06-07 14:10] LABS: BILIRUBIN,TOTAL 0.7 mg/dl (0.2-1); CALCIUM 9.1 mg/dl (8.5-10); CREATININE 0.6 mg/dl (0.55-1.3); TOT PROT 7.4 g/dl (6.4-8.2)
[2022-06-07 14:27] LABS: PLATELET ESTIMATE ADEQUATE
== END 2022-06-07 15:10 | disposition home or self-care (01) ==
LOC: FER 12:47
PROC: 3E033GC Introduction of Other Therapeutic Substance into Peripheral Vein, Percutaneous Approach (ICD-10-PCS; principal; 2022-06-07)
DX: R11.2 Nausea with vomiting, unspecified (principal); R19.7 Diarrhea, unspecified
CPT/HCPCS: 0241U-QW; 36415; 80053; 85027; 99284-25

== ENCOUNTER 2022-06-11 14:17 | Emergency (ER) | payer BC ==
[2022-06-11 14:33] VITALS: BP 157/95; PULSE 113; RESP 18; TEMP 99.2; BMI 39.9
[2022-06-11] MEDS ORDERED: KETOROLAC TROMETHAMINE 30 MG/1 ML VIAL IVPUSH ONE (14:42)
[2022-06-11] MEDS ORDERED: SODIUM CHLORIDE 0.9% 500 ML INFUS.BAG IV ONE (14:42)
[2022-06-11] MEDS ORDERED: ONDANSETRON 4 MG/2 ML VIAL IVPB ONE (14:42)
[2022-06-11] MEDS ORDERED: ACETAMINOPHEN 1000 MG/100 ML BAG IVPB ONE (14:42)
[2022-06-11] MEDS ORDERED: ONDANSETRON 4 MG/2 ML VIAL ONE (14:58)
[2022-06-11] MEDS ORDERED: ACETAMINOPHEN INJECTION 100 ML IVPB ONE (14:58)
[2022-06-11] MEDS ORDERED: KETOROLAC TROMETHAMINE 30 MG/1 ML VIAL ONE (14:58)
[2022-06-11 15:16] LABS: HCG,QUALITATIVE URINE Negative
[2022-06-11 16:15] LABS: HEMATOCRIT 45.8 % (32.4-45.2); HEMOGLOBIN 15.6 G/dL (10.7-15.3); MCH 29.4 pg (25.7-33.7); MEAN CELL VOLUME 86.5 fl (80-96); MEAN PLT VOLUME 7.3 fl (7.5-11.1); PLATELET COUNT 217.3 10^3/uL (134-434); RBC 5.29 10^6/uL (3.60-5.2); RDW 13.9 % (11.6-15.6); WHITE BLOOD COUNT 7.5 10^3/uL (4.0-10.8)
[2022-06-11 16:21] LABS: BILIRUBIN,TOTAL 0.9 mg/dl (0.2-1); CREATININE 0.6 mg/dl (0.55-1.3); TOT PROT 7.4 g/dl (6.4-8.2)
[2022-06-11 17:13] LABS: EPITHELIAL CELLS FEW /hpf
== END 2022-06-11 17:03 | disposition home or self-care (01) ==
LOC: FER 14:17
PROC: 3E0333Z Introduction of Anti-inflammatory into Peripheral Vein, Percutaneous Approach (ICD-10-PCS; principal; 2022-06-11)
PROC: 3E0333Z Introduction of Anti-inflammatory into Peripheral Vein, Percutaneous Approach (ICD-10-PCS; 2022-06-11)
PROC: 3E033GC Introduction of Other Therapeutic Substance into Peripheral Vein, Percutaneous Approach (ICD-10-PCS; 2022-06-11)
DX: R11.2 Nausea with vomiting, unspecified (principal)
CPT/HCPCS: 0241U-QW; 36415; 80053; 81003; 81015; 83690; 84703; 85027; 99284-25

== ENCOUNTER 2022-08-04 09:49 | Emergency (ER) | payer BC, OTHER ==
[2022-08-04] MEDS ORDERED: IBUPROFEN 600 MG TABLET (FP) PO ONE ×2 (10:00→10:20)
[2022-08-04 10:07] VITALS: BP 118/70; PULSE 80; RESP 18; TEMP 98.7; BMI 38.2
[2022-08-04] MEDS ORDERED: ACETAMINOPHEN 325 MG TABLET (FP) PO ONE (10:21)
[2022-08-04] MEDS ORDERED: ACETAMINOPHEN 325 MG TABLET (FP) ONE (10:23)
== END 2022-08-04 10:51 | disposition home or self-care (01) ==
LOC: FER 09:49
DX: S63.91XA Sprain of unspecified part of right wrist and hand, initial encounter (principal); W23.0XXA Caught, crushed, jammed, or pinched between moving objects, initial encounter
CPT/HCPCS: 73110-TC-RT-FY; 73130-TC-RT-FY; 99283-25

== ENCOUNTER 2022-08-31 19:19 | Emergency (ER) | payer BC, OTHER ==
[2022-08-31 19:35] VITALS: BP 122/69; PULSE 93; RESP 18; TEMP 98.7; BMI 39.9
[2022-08-31] MEDS: ALBUTEROL SO4 2.5/IPRATROPIUM 0.5 INH SOL 3 ML VIAL.NEB. NEB SCH ×3 (19:45→20:27)
[2022-08-31] MEDS ORDERED: MAGNESIUM SULF 50% (8.12 MEQ/2 ML-1 GM VIAL) IVPB ONE (19:48)
[2022-08-31] MEDS ORDERED: methylPREDNISolone NA SUCC 125 MG/2 ML VIAL IVPB ONE (19:48)
[2022-08-31] MEDS ORDERED: ACETAMINOPHEN 500 MG TABLET (FP) PO ONE (19:49)
[2022-08-31] MEDS ORDERED: methylPREDNISolone NA SUCC 125 MG/2 ML VIAL ONE (19:50)
[2022-08-31] MEDS ORDERED: ALBUTEROL SO4 2.5/IPRATROPIUM 0.5 INH SOL 3 ML VIAL.NEB. NEB ONE (19:51)
[2022-08-31] MEDS ORDERED: MAGNESIUM SULFATE IN WATER 2 GM/50 ML IVPB IVPB ONE (19:51)
[2022-08-31] MEDS ORDERED: ACETAMINOPHEN 500 MG TABLET (FP) ONE (20:22)
== END 2022-08-31 21:24 | disposition home or self-care (01) ==
LOC: FER 19:19
PROC: 3E0F7GC Introduction of Other Therapeutic Substance into Respiratory Tract, Via Natural or Artificial Opening (ICD-10-PCS; principal; 2022-08-31)
PROC: 3E033GC Introduction of Other Therapeutic Substance into Peripheral Vein, Percutaneous Approach (ICD-10-PCS; 2022-08-31)
PROC: 3E033GC Introduction of Other Therapeutic Substance into Peripheral Vein, Percutaneous Approach (ICD-10-PCS; 2022-08-31)
DX: J45.901 Unspecified asthma with (acute) exacerbation (principal); Z20.822 Contact with and (suspected) exposure to COVID-19
CPT/HCPCS: 0241U-QW; 99284-25

== ENCOUNTER 2022-09-01 20:39 | Emergency (ER) | payer BC ==
[2022-09-01 20:48] VITALS: BP 132/83; PULSE 110; RESP 24; TEMP 98.2; BMI 41.5
[2022-09-01] MEDS ORDERED: ALBUTEROL SO4 2.5/IPRATROPIUM 0.5 INH SOL 3 ML VIAL.NEB. NEB ONE (20:50)
[2022-09-01] MEDS ORDERED: ALBUTEROL SO4 0.083% IH SOL 2.5 MG/3 ML VIAL.NEB. NEB ONE (23:05)
== END 2022-09-02 00:48 | disposition left against medical advice (07) ==
LOC: JER 20:39
DX: J45.21 Mild intermittent asthma with (acute) exacerbation (principal)
CPT/HCPCS: 99281-25

== ENCOUNTER 2023-02-25 15:15 | Emergency (ER) | payer BC, OTHER ==
[2023-02-25 15:24] VITALS: PULSE 87; BMI 39.9
[2023-02-25] MEDS ORDERED: DEXAMETHASONE LIQUID 0.5 MG/5 ML PO ONE (15:49)
[2023-02-25] MEDS ORDERED: ALBUTEROL SO4 2.5/IPRATROPIUM 0.5 INH SOL 3 ML VIAL.NEB. NEB ONE (15:51)
[2023-02-25] MEDS ORDERED: DEXAMETHASONE SOD PHOSPHATE 10 MG/1 ML VIAL ONE (15:51)
[2023-02-25] MEDS: ALBUTEROL SO4 2.5/IPRATROPIUM 0.5 INH SOL 3 ML VIAL.NEB. NEB SCH ×2 (15:57→15:58)
[2023-02-25 18:38] VITALS: BP 119/76; RESP 18; TEMP 97.8
== END 2023-02-25 18:45 | disposition home or self-care (01) ==
LOC: JERFT 15:15 → JER 15:15 → JERFT 18:45
PROC: 3E0F7GC Introduction of Other Therapeutic Substance into Respiratory Tract, Via Natural or Artificial Opening (ICD-10-PCS; principal; 2023-02-25)
DX: J45.901 Unspecified asthma with (acute) exacerbation (principal); R07.89 Other chest pain; R06.02 Shortness of breath; R13.10 Dysphagia, unspecified; R68.2 Dry mouth, unspecified; Z20.822 Contact with and (suspected) exposure to COVID-19
CPT/HCPCS: 0241U-QW; 71046-TC-FY; 99284-25

== ENCOUNTER 2023-03-30 09:52 | Emergency (ER) | payer BC ==
[2023-03-30 09:57] VITALS: BMI 41.5
[2023-03-30] MEDS ORDERED: ACETAMINOPHEN 1000 MG/100 ML BAG IVPB ONE (10:57)
[2023-03-30 11:12] LABS: EOS % 2.3 % (0-4.5); HEMATOCRIT 42.1 % (32.4-45.2); HEMOGLOBIN 14.1 GM/dL (10.7-15.3); LYMPH % 37.5 % (8-40); MCH 28.9 pg (25.7-33.7); MCHC 33.5 g/dl (32.0-36.0); MEAN PLT VOLUME 6.9 fl (7.5-11.1); MONO % 8.7 % (3.8-10.2); NEUT % 50.5 % (42.8-82.8); PLATELET COUNT 284 10^3/uL (134-434); RBC 4.89 M/mm3 (3.60-5.2); RDW 13.2 % (11.6-15.6); WHITE BLOOD COUNT 6.3 K/mm3 (4.0-10.0)
[2023-03-30] MEDS ORDERED: ACETAMINOPHEN INJECTION 100 ML IVPB ONE (11:22)
[2023-03-30 11:25] LABS: INR 1.04 (0.83-1.09); PROTHROMBIN TIME (PATIENT) 12.1 SEC (9.7-13.0)
[2023-03-30 12:10] LABS: BILIRUBIN,TOTAL 0.4 mg/dL (0.2-1); CALCIUM 9.5 mg/dL (8.5-10.1); CREATININE 0.8 mg/dL (0.55-1.3); POTASSIUM 4.5 mmol/L (3.5-5.1); TOT PROT 7.9 g/dl (6.4-8.2)
[2023-03-30 13:40] VITALS: BP 110/72; PULSE 77; RESP 19; TEMP 97.9
== END 2023-03-30 13:40 | disposition home or self-care (01) ==
LOC: JER 09:52
PROC: 3E033NZ Introduction of Analgesics, Hypnotics, Sedatives into Peripheral Vein, Percutaneous Approach (ICD-10-PCS; principal; 2023-03-30)
DX: R07.9 Chest pain, unspecified (principal); M79.602 Pain in left arm; R20.2 Paresthesia of skin
CPT/HCPCS: 36415; 71045-TC-FY; 80053; 84484; 84703; 85025; 85379; 85610; 93005; 93010; 99285-25

== ENCOUNTER 2023-08-02 13:14 | Emergency (ER) | payer OTHER, BC ==
[2023-08-02 13:23] VITALS: BP 126/70; PULSE 78; RESP 18; TEMP 98; BMI 43.2
[2023-08-02] MEDS ORDERED: ACETAMINOPHEN 500 MG TABLET (FP) ONE (14:35)
[2023-08-02] MEDS ORDERED: METHOCARBAMOL 500 MG TABLET ONE (14:35)
[2023-08-02] MEDS: ACETAMINOPHEN 500 MG TABLET (FP) PO ONE (14:45)
[2023-08-02] MEDS: METHOCARBAMOL 750 MG TABLET PO ONE (14:46)
== END 2023-08-02 17:03 | disposition home or self-care (01) ==
LOC: JERFT 13:14
DX: M54.50 Low back pain, unspecified (principal); R51.9 Headache, unspecified; M54.2 Cervicalgia; S09.90XA Unspecified injury of head, initial encounter; S19.9XXA Unspecified injury of neck, initial encounter; V43.62XA Car passenger injured in collision with other type car in traffic accident, initial encounter; Y92.410 Unspecified street and highway as the place of occurrence of the external cause
CPT/HCPCS: 70450-TC; 72100-TC-FY; 72125-TC; 99284-25

== ENCOUNTER 2023-12-31 14:36 | Emergency (ER) | payer BC, OTHER ==
[2023-12-31 14:42] VITALS: BP 112/77; PULSE 74; RESP 20; TEMP 98.6; BMI 43.2
[2023-12-31] MEDS ORDERED: FLUORESCEIN NA 1 EA STRIP ONE (15:51)
[2023-12-31] MEDS ORDERED: TETRACAINE 0.5% OPHTH SOLN 2 ML BOTTLE ONE (15:51)
[2023-12-31] MEDS: ERYTHROMYCIN 0.5% OPHTHALMIC OINTMENT 3.5 GM TUBE OS SCH (16:22)
[2023-12-31] MEDS: FLUORESCEIN NA 1 EA STRIP OS ONE (16:22)
== END 2023-12-31 16:33 | disposition home or self-care (01) ==
LOC: JERFT 14:36
DX: S05.02XA Injury of conjunctiva and corneal abrasion without foreign body, left eye, initial encounter (principal); H57.89 Other specified disorders of eye and adnexa; X58.XXXA Exposure to other specified factors, initial encounter
CPT/HCPCS: 99283-25

== ENCOUNTER 2024-01-19 11:51 | Emergency (ER) | payer BC ==
[2024-01-19 12:10] VITALS: BP 126/77; PULSE 75; RESP 16; TEMP 97.8; BMI 41.5
[2024-01-19] MEDS ORDERED: KETOROLAC TROMETHAMINE 60 MG/2 ML VIAL ONE (12:48)
[2024-01-19] MEDS: KETOROLAC TROMETHAMINE 60 MG/2 ML VIAL IM ONE (13:05)
[2024-01-19 13:36] LABS: HEMATOCRIT 46.9 % (32.4-45.2); HEMOGLOBIN 15.4 G/dL (10.7-15.3); MCH 28.3 pg (25.7-33.7); MCHC 32.8 g/dl (32.0-36.0); MEAN CELL VOLUME 86.5 fl (80-96); MEAN PLT VOLUME 7.2 fl (7.5-11.1); PLATELET COUNT 238.2 10^3/uL (134-434); RBC 5.42 10^6/uL (3.60-5.2); RDW 14.3 % (11.6-15.6); WHITE BLOOD COUNT 7.2 10^3/uL (4.0-10.8)
[2024-01-19 13:40] LABS: PLATELET ESTIMATE ADEQUATE
[2024-01-19 13:45] LABS: BILIRUBIN,TOTAL 0.4 mg/dl (0.2-1); CALCIUM 9.3 mg/dl (8.5-10.1); CREATININE 0.7 mg/dl (0.6-1.3); TOT PROT 7.1 g/dl (6.4-8.2)
== END 2024-01-19 14:21 | disposition home or self-care (01) ==
LOC: FER 11:51
PROC: 3E0133Z Introduction of Anti-inflammatory into Subcutaneous Tissue, Percutaneous Approach (ICD-10-PCS; principal; 2024-01-19)
DX: M54.6 Pain in thoracic spine (principal)
CPT/HCPCS: 36415; 71046-TC-FY; 80053; 84484; 85027; 85379; 93005; 93971-TC; 99285-25

== ENCOUNTER 2024-01-22 12:00 | Emergency (ER) | payer BC ==
[2024-01-22 12:05] VITALS: BP 131/79; PULSE 79; RESP 18; TEMP 98.6; BMI 43.2
[2024-01-22] MEDS ORDERED: LIDOCAINE 4% PATCH TP ONE (13:09)
[2024-01-22] MEDS ORDERED: IBUPROFEN 600 MG TABLET (FP) PO ONE (13:09)
[2024-01-22] MEDS ORDERED: ACETAMINOPHEN 500 MG TABLET (FP) ONE (13:10)
[2024-01-22] MEDS ORDERED: KETOROLAC TROMETHAMINE 30 MG/1 ML VIAL ONE (13:15)
[2024-01-22] MEDS: LIDOCAINE 4% PATCH TP ONE (13:20)
[2024-01-22] MEDS: KETOROLAC TROMETHAMINE 30 MG/1 ML VIAL IM ONE (13:21)
[2024-01-22] MEDS: ACETAMINOPHEN 500 MG TABLET (FP) PO ONE (13:21)
[2024-01-22] MEDS: IBUPROFEN 600 MG TABLET (FP) PO ONE (13:21)
[2024-01-22] MEDS ORDERED: LIDOCAINE PATCH REMOVAL MC ONE (22:00)
== END 2024-01-22 13:23 | disposition home or self-care (01) ==
LOC: JER 12:00 → JERFT 12:00
PROC: 3E0133Z Introduction of Anti-inflammatory into Subcutaneous Tissue, Percutaneous Approach (ICD-10-PCS; principal; 2024-01-22)
DX: S16.1XXA Strain of muscle, fascia and tendon at neck level, initial encounter (principal); M25.511 Pain in right shoulder
CPT/HCPCS: 99284-25

== ENCOUNTER 2025-03-07 13:35 | Emergency (ER) | payer BC ==
[2025-03-07 13:43] VITALS: BP 112/73; PULSE 99; RESP 18; TEMP 98.6; BMI 39.9
[2025-03-07] MEDS: ALBUTEROL SO4 2.5/IPRATROPIUM 0.5 INH SOL 3 ML VIAL.NEB. NEB ONE (14:26)
[2025-03-07] MEDS ORDERED: ALBUTEROL SO4 2.5/IPRATROPIUM 0.5 INH SOL 3 ML VIAL.NEB. NEB ONE (14:26)
[2025-03-07 17:35] LABS: HIV INTERPRETATION NEGATIVE (NEGATIVE)
[2025-03-07 17:36] LABS: HCV DIAGNOSTIC IN-HOUSE W/RFLX NON-REACTIVE (NONREACTIVE)
== END 2025-03-07 15:20 | disposition home or self-care (01) ==
LOC: FER 13:35
PROC: 3E0F7GC Introduction of Other Therapeutic Substance into Respiratory Tract, Via Natural or Artificial Opening (ICD-10-PCS; principal; 2025-03-07)
DX: J45.21 Mild intermittent asthma with (acute) exacerbation (principal); J06.9 Acute upper respiratory infection, unspecified; R05.9 Cough, unspecified; R09.81 Nasal congestion; R06.7 Sneezing; R07.89 Other chest pain
CPT/HCPCS: 36415; 86803; 87389; 99283-25